=== PATIENT | female | born 1980 | race Asian ===

== ENCOUNTER 2021-09-13 22:29 | Observation (INO) | payer OTHER, SELFPAY ==
[2021-09-13 21:30] VITALS: BMI 29.2
[2021-09-13 21:50] VITALS: BP 131/85; PULSE 83
[2021-09-13 21:54] LABS: Basophils Percent Auto 0.2 % (0.2-1.2); Eosinophils Absolute Auto 0.2 K/mm3 (0-0.3); Eosinophils Percent Auto 1.6 % (0-4.4); Hematocrit 29.9 % (37.0-47.0); Hemoglobin 10.5 g/dL (12.0-15.0); Immature Granulocyte Absolute 0.05 K/mm3 (0.00-0.031); Immature Granulocyte Percent A 0.5 % (0-0.5); Lymphocytes Absolute Auto 1.78 K/mm3 (0.9-3.2); Lymphocytes Percent Auto 18.7 % (18.3-44.2); Mean Corpuscular HGB Conc 35.1 g/dl (32-36); Mean Corpuscular Volume 85.4 fl (80-100); Mean Platelet Volume 9.5 fl (7.4-10.4); Monocytes Absolute Auto 0.8 K/mm3 (0.1-0.6); Monocytes Percent Auto 7.9 % (2.6-8.5); Neutrophils Absolute Auto 6.8 K/mm3 (1.3-6.7); Neutrophils Percent Auto 71.1 % (45.5-73.1); Platelet Count Result 251 k/mm3 (150-375); White Blood Count 9.5 K/mm3 (4.5-10.0)
[2021-09-13 21:55] LABS: Appearance Urine Clear (Clear); Bilirubin Urine Negative (Negative); Blood Urine Negative (Negative); Glucose Urine UA Negative (Negative); Ketones Urine Negative (Negative); Leukocyte Esterase Ur Negative LEU/UL (NEGATIVE); Nitrate Urine Negative (Negative); Protein Urine Negative (Negative); Urobilinogen Urine 0.2 mg/dL (<2.0)
[2021-09-13 22:01] VITALS: BP 128/85; PULSE 85
[2021-09-13 22:03] LABS: Add Urine Microscopic? NO; Color Urine Light Yellow (Yellow)
[2021-09-13 22:07] LABS: Creatinine Urine 22.3 mg/dL; Total Protein Urine Random 26 mg/dL; Ur Ttl Prot Creatinine Ratio 1.17 mg/mg (0-0.20)
[2021-09-13 22:12] LABS: Alanine Aminotransferase 16 U/L (6-35); Albumin Level 3.5 g/dL (3.5-5.1); Alkaline Phosphatase 130 U/L (38-126); Anion Gap 6 mmol/L (8-16); Aspartate Amino Transferase 24 U/L (14-36); Bilirubin,Total 0.1 mg/dL (0.2-1.3); Blood Urea Nitrogen 13 mg/dL (7-17); Calcium 8.7 mg/dL (8.4-10.2); Carbon Dioxide 23 mmol/L (22-30); Chloride 106 mmol/L (98-107); Estimated Glomerular Filt Rate > 60; Glucose 115 mg/dL (65-110); Potassium 2.8 mmol/L (3.4-5.0); Sodium 135 mmol/L (137-145); Uric Acid 5.5 mg/dL (2.5-7.5)
[2021-09-13 22:16] VITALS: BP 136/90; PULSE 85
[2021-09-13 22:31] VITALS: BP 137/89; PULSE 81
[2021-09-13] MEDS: KCL 40 MEQ/0.9% SOD CHL 1,000 ML 150 ML IV CONT (23:00)
[2021-09-14 02:31] VITALS: BP 111/62; PULSE 97
--- NOTE | 2021-09-14 04:19 | OBADM ---
This patient, Becca Gant, admitted to the OB room [facility] for observation. Patient/family oriented to hospital policies and general routines including ID bracelet, bed and alarms, visiting hours, pain management, procedures, bathroom and other care routines, personal items, smoking policy, room service/diet, and visiting hours. Patient/Family are encouraged to report perceived risks to care and to ask questions if they do not understand what they are told or what they should do.
[2021-09-14 07:50] VITALS: BP 137/87; PULSE 82
[2021-09-14 08:00] VITALS: TEMP 36.2
[2021-09-14 08:10] LABS: Hematocrit 28.7 % (37.0-47.0); Hemoglobin 9.9 g/dL (12.0-15.0); Mean Corpuscular HGB Conc 34.5 g/dl (32-36); Mean Corpuscular Hemoglobin 29.9 pg (26-34); Mean Corpuscular Volume 86.7 fl (80-100); Mean Platelet Volume 9.4 fl (7.4-10.4); Platelet Count Result 223 k/mm3 (150-375); Red Blood Count 3.31 M/mm3 (4.2-5.4); Red Cell Distribution Width 12.1 % (11.5-14.5); White Blood Count 7.3 K/mm3 (4.5-10.0)
[2021-09-14 08:26] LABS: Alanine Aminotransferase 13 U/L (6-35); Alkaline Phosphatase 126 U/L (38-126); Anion Gap 5 mmol/L (8-16); Aspartate Amino Transferase 20 U/L (14-36); Bilirubin,Total 0.3 mg/dL (0.2-1.3); Blood Urea Nitrogen 7 mg/dL (7-17); Calcium 7.6 mg/dL (8.4-10.2); Carbon Dioxide 21 mmol/L (22-30); Chloride 110 mmol/L (98-107); Estimated CRCL calculation 90 ml/min; Estimated Glomerular Filt Rate > 60; Glucose 86 mg/dL (65-110); Potassium 3.1 mmol/L (3.4-5.0); Sodium 136 mmol/L (137-145)
--- NOTE | 2021-09-14 08:33 | PM.IMHP ---
H&P: HPI History of Present Illness Date/Time: 09/14/21 08:33 Chief Complaint: Becca is a 41yo here for elevated BPs at home, highest yesterday evening 170/100. She has cHTN and had severe PreE and was delivered at 29w last . She denies JASON/BV/EP. Good FM. On admission found to have very low potassium. Review of Systems Review of Systems: All systems reviewed & are unremarkable except as noted in HPI and below Meds Home Medications and Allergies Home Medications Medication Instructions Recorded Confirmed Type aspirin 81 mg tablet 81 mg PO DAILY 09/13/21 09/13/21 History ferrous sulfate 27 mg iron tablet 27 mg PO DAILY 09/13/21 09/13/21 History nifedipine 60 mg tablet,extended 60 mg PO DAILY 09/13/21 09/13/21 History release 24 hr vitamin-ferrous sulfate 1 tablet PO DAILY 09/13/21 09/13/21 History 27 mg iron-folic acid 0.8 mg tablet Allergies Allergy/AdvReac Type Severity Reaction Status Date / Time shellfish derived Allergy Rash Verified 09/13/21 23:23 Vital Signs Vital Signs - 24 hr 09/13/21 21:50 09/13/21 22:01 09/13/21 22:16 Pulse Rate 83 85 85 Blood Pressure 131/85 128/85 136/90 09/13/21 22:31 09/14/21 02:31 Pulse Rate 81 97 Blood Pressure 137/89 111/62 Exam Const: General: no acute distress Resp: Effort & Inspection: normal respiratory effort Auscultation: clear to auscultation bilaterally Cardio: Rate: regular rate Rhythm: regular rhythm GI: GI Palp: Yes Soft to palpation Extrem: General: normal to inspection H&P: Results Labs Labs: Short CBC 09/13/21 09/14/21 Range/Units 21:47 08:03 WBC 9.5 7.3 (4.5-10.0) K/mm3 Hgb 10.5 L 9.9 L (12.0-15.0) g/dL Hct 29.9 L 28.7 L (37.0-47.0) % Plt Count 251 223 (150-375) k/mm3 [facility] 09/13/21 09/14/21 21:47 08:03 Sodium 135 L 136 L Potassium 2.8 L* 3.1 L Chloride 106 110 H Carbon Dioxide 23 21 L BUN 13 7 D Creatinine 0.70 0.60 L Glucose 115 H 86 Calcium 8.7 7.6 L Liver Function 09/13/21 09/14/21 Range/Units 21:47 08:03 Total Bilirubin 0.1 L 0.3 (0.2-1.3) mg/dL AST 24 20 (14-36) U/L ALT 16 13 (6-35) U/L Alkaline Phosphatase 130 H 126 (38-126) U/L Albumin 3.5 3.0 L (3.5-5.1) g/dL Urine 09/13/21 Range/Units 21:47 Urine Color Light yellow (Yellow) Urine Appearance Clear (Clear) Urine pH 7.0 (5.0-9.0) Ur Specific [place] 1.010 (1.001-1.035) Urine Protein Negative (Negative) mg/dL Urine Glucose (UA) Negative (Negative) mg/dL Assessment and Plan Assessment and plan (1) Chronic hypertension affecting : Code(s): O10.919 - Unspecified pre-existing hypertension complicating , unspecified trimester Status: Acute (2) History of severe pre-eclampsia: Code(s): Z87.59 - Personal history of other complications of , childbirth and the puerperium Status: Acute (3) Hypokalemia: Code(s): E87.6 - Hypokalemia Status: Acute Additional Plan K+ replacement repeat PIH labs this am if K improved and PIH labs still wnl, may complete 24hr urine at home. No strenuous activity at home. FHT category 1 BPs normotensive on bedrest.
--- NOTE | 2021-09-14 08:45 | PC.NURSE ---
Dr Corrigan here to see patient, order to run IV fluids at 200ml/hr x1. Patient may be dc'd and finish 24 hour urine at home.
[2021-09-14] MEDS: KCL 40 MEQ/0.9% SOD CHL 1,000 ML 200 ML IV CONT (08:51)
[2021-09-14 10:01] VITALS: BP 136/85; PULSE 82
[2021-09-14 11:25] VITALS: BP 135/84; PULSE 78
[2021-09-14 11:26] VITALS: BP 136/85; PULSE 78
[2021-09-14 14:59] LABS: Anion Gap 3 mmol/L (8-16); Blood Urea Nitrogen 8 mg/dL (7-17); Calcium 7.6 mg/dL (8.4-10.2); Carbon Dioxide 21 mmol/L (22-30); Chloride 112 mmol/L (98-107); Estimated CRCL calculation 90 ml/min; Estimated Glomerular Filt Rate > 60; Glucose 117 mg/dL (65-110); Potassium 3.3 mmol/L (3.4-5.0); Sodium 136 mmol/L (137-145)
== END 2021-09-14 15:27 | disposition home or self-care (01) ==
LOC: ANHOBOP 22:29 → ANHOBPP 22:29
PROVIDERS: Admitting Provider Obstetrics & Gynecology; PCP Emergency Medicine; Visit Provider Obstetrics & Gynecology
DX: O10.919 Unspecified pre-existing hypertension complicating pregnancy, unspecified trimester (principal); E87.6 Hypokalemia; O09.529 Supervision of elderly multigravida, unspecified trimester; Z3A.00 Weeks of gestation of pregnancy not specified; Z87.59 Personal history of other complications of pregnancy, childbirth and the puerperium
CPT/HCPCS: 36415; 59025; 80048; 80053; 81003; 82570; 84156; 84550; 85025; 85027; 87086; 96365; 96366; 96376; G0378; G0379

== ENCOUNTER 2021-09-14 22:30 | Outpatient (NON) | payer OTHER, SELFPAY ==
[2021-09-14 23:31] LABS: Collection Time Urine 24 HOURS
[2021-09-14 23:45] LABS: Creatinine Urine 22.5 mg/dL; Total Protein Urine Random 20 mg/dL
[2021-09-15 00:08] LABS: Specific Gravity Ur 1.015; Total Protein Urine 24 Hr 1080 mg/24hr (28-141); Total Volume 24 Hour Urine 5400 ml
[2021-09-15 00:09] LABS: Creatinine Clearance Urine 148.2 ml/min (75-125); Patient Weight 149 Lbs
== END 2021-09-14 22:31 | disposition home or self-care (01) ==
LOC: ANHOBOP 23:12
PROVIDERS: Visit Provider Obstetrics & Gynecology
DX: Z34.90 Encounter for supervision of normal pregnancy, unspecified, unspecified trimester (principal); Z3A.00 Weeks of gestation of pregnancy not specified
CPT/HCPCS: 81050; 82575; 84156

== ENCOUNTER 2021-09-18 14:37 | Outpatient (RCR) | payer OTHER, SELFPAY ==
[2021-09-17] MEDS: BETAMETHASONE SOD PHOS/ACETATE 30 MG/5 ML VIAL 12 MG IM (13:44)
[2021-09-18] MEDS: BETAMETHASONE SOD PHOS/ACETATE 30 MG/5 ML VIAL 12 MG IM (14:48)
== END 2021-10-09 09:17 | disposition home or self-care (01) ==
LOC: ANHOBOP 14:37
PROVIDERS: Visit Provider Obstetrics & Gynecology
DX: O36.8990 Maternal care for other specified fetal problems, unspecified trimester, not applicable or unspecified (principal); Z3A.00 Weeks of gestation of pregnancy not specified
CPT/HCPCS: 96372; J0702

== ENCOUNTER 2021-09-18 17:23 | Inpatient (IN) | payer OTHER, SELFPAY ==
--- NOTE | 2021-09-14 13:00 | PC.NURSE ---
Verified with OR schedule and patient --C/S on 10/08/21 with tubal ligation at 0730 Patient given requisition for lab drawn on 10/06/21
[2021-09-18] VITALS (58 sets, daily range): BP systolic 114–168; BP diastolic 16–131; PULSE 68–217; RESP 14–21; TEMP 36.3–37; O2SAT 96–100; BMI 29.7
--- NOTE | 2021-09-18 17:23 | LDADM ---
This patient, Becca Gant, was admitted to Labor/Delivery/Recovery 118 on 09/18/21 at 17:23. Plans for labor, pain management and were discussed with patient. Patient/family oriented to hospital policies and general routines including ID bracelet, bed and alarms, visiting hours, pain management, procedures, bathroom and other care routines, personal items, smoking policy, room service/diet and guest tray routines, security routines, and visiting hours. Patient/Family are encouraged to report perceived risks to care and to ask questions if they do not understand what they are told or what they should do. See OBIX for further documentation.
--- OUTSIDE RECORDS SUMMARY | 2021-09-18 17:29 | XMS_ITS | Encounter Summary ---
:1980 Author Care Team Providers Name Role Phone Manolo Montanez Primary Care Provider [phone] Reason for Visit OB visit Assessment and Plan 1. Advanced maternal age 2. Deliveries by 3. History of severe pre-eclampsia 4. Hypertension complicating ? nifedipine ER 30 mg tablet,extended r elease 24 hr Discussion Note: None recorded.Patient educational handouts: No information available. Plan of Care Reminders Provider Appointments Nst 09/21/2021 2:30PM Nst, , EQUIP ? U/s Ob Growth 09/25/2021 4:30PM Ultrasound, TECH ? Ob Routine 09/25/2021 5:15PM Sydnie Corrigan MD ? Nst 09/25/2021 4:00PM Nst, , EQUIP ? Nst 09/28/2021 4:00PM Nst, , EQUIP ? Nst 10/05/2021 3:00PM Nst, , EQUIP ? U/s Ob Growth 10/05/2021 3:30PM Ultrasound T wo, TECH ? Ob Routine 10/05/2021 2:45PM Sydnie Corrigan MD ? SURG CSection 10/08/2021 7:30AM Sydnie Corrigan MD ? Nst 10/09/2021 4:00PM Nst, , EQUIP ? Nst 10/12/2021 3:30PM Nst, , EQUIP ? Ob Routine 10/12/2021 2:45PM Sydnie Corrigan MD ? 1Hr Glucose on or around Sydnie kellogg MD 01/11/2022 ? Nexplanon Removal on or around Sydnie Corrigan MD 02/29/2024 Lab None recorded. ? ? Referral None recorded. ? ? Procedures None recorded. ? ? Surgeries None recorded. ? ? Imaging None recorded. ? ? Medications Name Start Date ? ? nifedipine ER 30 mg tablet,extended release ? TAKE 1 TABLET BY MOUTH TWICE A DAY
--- OUTSIDE RECORDS SUMMARY | 2021-09-18 17:29 | XMS_ITS ---
:1980 Author Care Team Providers Name Role Phone GLENNA MÉNDEZ Primary Care Provider [phone] Allergies Code Code System Name Reaction Severity Status Onset Shellfish Derived ? ? Active ? Medications Name Status Start Date Stop Date ? ? amlodipine 5 mg tablet Completed ? TAKE 1 TABLET BY MOUTH ONCE DAILY amoxicillin 500 mg capsule Completed ? 08/22 chlorhexidine gluconate 0.12 % mouthwash Completed ? 08/22/2020 diflunisal 500 mg tablet Completed ? 021 fluticasone propionate 50 mcg/actuation nasal Completed ? 03/06/2021 spray,suspension labetalol 200 mg tablet Completed ? 08/23/19 levocetirizine 5 mg tablet Completed ? 03/06 losartan 100 mg tablet Completed ? losartan 50 mg tablet Completed ? 08/22/2020 Nexplanon 68 mg subdermal implant Completed ? 03/06/2021 Inject by subcutaneous route. nifedipine ER 30 mg tablet,extended release Active ? Not available TAKE 1 TABLET BY MOUTH TWICE A DAY nifedipine ER 30 mg tablet,extended release 24 hr Active ? Not available Take 1 tablet twice a day by oral route. nifedipine ER 60 mg tablet,extended release Completed ? 07/20/2021 nifedipine ER 60 mg tablet,extended release 24 hr Completed ? 10/25/2020 TAKE 1 TABLET BY MOUTH ONCE DAILY potassium chloride ER 20 mEq tablet,extended release Active ? Not available Active ? Not available sulfamethoxazole 800 mg-trimethoprim 160 mg tablet Completed ? 08/22/2020 TAKE 1 TABLET BY MOUTH TWICE DAILY FOR 7 DAYS Problems Name Status Onset Date Source ? Deliveries
--- OUTSIDE RECORDS SUMMARY | 2021-09-18 17:29 | XMS_ITS | Encounter Summary ---
:1980 Author Care Team Providers Name Role Phone Manolo Montanez Primary Care Provider [phone] Reason for Visit OB visit Assessment and Plan Assessment Note Patient is ___weeks . Discussed plan. 1. Routine care Discussion Note: None recorded.Patient educational handouts: No [...] ER 30 mg tablet,extended release 24 hr ? Take 1 tablet twice a day by oral route. potassium chlorid
--- OUTSIDE RECORDS SUMMARY | 2021-09-18 17:29 | XMS_ITS | Encounter Summary ---
:1980 Author Care Team Providers Name Role Phone Manolo Montanez Primary Care Provider [phone] Reason for Visit OB visit Assessment and Plan 1. Advanced maternal age 2. Deliveries by 3. History of severe pre-eclampsia Discussion Note: None recorded.Patient educational handouts: No [...] twice a day by oral route. potassium chloride ER 20 mEq t
--- OUTSIDE RECORDS SUMMARY | 2021-09-18 17:29 | XMS_ITS | Encounter Summary ---
:1980 Author Care Team Providers Name Role Phone Manolo Montanez Primary Care Provider [phone] Reason for Visit None recorded. Assessment and Plan 1. Gestational diabetes mellitus, class A>1< ? non-stress test Discussion Note: None recorded.Patient educational handouts: No [...] ? Surgeries None recorded. ? ? Imaging Non-stress Test 08/30/2021 [facility] Medications Name Start Date ? ? nifedipine ER 30 mg tablet,extended release ? TAKE 1 TABLET BY MOUTH TWICE A DAY nifedipine ER 30 mg tablet,extended release 24 hr ? Take 1 tablet twice a day by oral route. potassium chloride ER 20 mEq tablet,extended release ? CARRI[facility]
--- OUTSIDE RECORDS SUMMARY | 2021-09-18 17:29 | XMS_ITS | Encounter Summary ---
:1980 Author Care Team Providers Name Role Phone Manolo Montanez Primary Care Provider [phone] Reason for Visit None recorded. Assessment and Plan 1. Chronic hypertension complicating AN D/OR reason for care during ? US, obstetric, follow-up Discussion Note: None recorded.Patient educational handouts: No [...] ? Surgeries None recorded. ? ? Imaging US, Obstetric, 08/30/2021 [facility] Follow-up Medications Name Start Date ? ? nifedipine ER 30 mg tablet,extended release ? TAKE 1 TABLET BY MOUTH TWICE A DAY nifedipine ER 30 mg tablet,extended release 24 hr ? Take 1 tablet twice a day by oral route.
--- OUTSIDE RECORDS SUMMARY | 2021-09-18 17:29 | XMS_ITS | Encounter Summary ---
:1980 Author Care Team Providers Name Role Phone Manolo Montanez Primary Care Provider [phone] Reason for Visit None recorded. Assessment and Plan 1. History of severe pre-eclampsia ? non-stress test Discussion Note: None recorded.Patient [...] None recorded. ? ? Imaging Non-stress Test 09/04/2021 [facility] Medications Name Start Date ? ? nifedipine ER 30 mg tablet,extended release ? TAKE 1 TABLET BY MOUTH TWICE A DAY nifedipine ER 30 mg tablet,extended release 24 hr ? Take 1 tablet twice a day by oral route. potassium chloride ER 20 mEq tablet,extended release ? TAKE 1 TABLET BY
--- OUTSIDE RECORDS SUMMARY | 2021-09-18 17:29 | XMS_ITS | Encounter Summary ---
:1980 Author Care Team Providers Name Role Phone Manolo Montanez Primary Care Provider [phone] Reason for Visit OB visit Assessment and Plan 1. Hypokalemia ? BMP, blood 2. Advanced maternal age 3. Deliveries by 4. History of severe pre-eclampsia 5. Hypertension complicating Discussion Note: None recorded.Patient educational handouts: No [...] or around Sydnie Corrigan MD 02/29/2024 Lab BMP, Blood 08/03/2021 [facility] (Lab) Referral None recorded. ? ? Procedures None recorded. ? ? Surgeries None recorded. ? ? Imaging None recorded. ? ? Medications Name Start Date ? ? nifedipine ER 30 mg tablet,
--- OUTSIDE RECORDS SUMMARY | 2021-09-18 17:29 | XMS_ITS | Encounter Summary ---
:1980 Author Care Team Providers Name Role Phone Manolo Montanez Primary Care Provider [phone] Reason for Visit OB visit Assessment and Plan Assessment Note Patient is ___weeks . Discussed plan. 1. Advanced maternal age 2. Deliveries by ? section (SURG) 3. History of severe pre-eclampsia 4. Sterilization requested ? salpingectomy (SURG) 5. Gestational diabetes mellitus, class A>1< Pt here for diet teaching. Went over id eal ranges for FBS and pp BS. Went over carb counting and carb ranges for each meal/s nack. Gave ideas for foods to eat for meals/snacks. Discussed drink options an d to avoid soda and juice. Pt picked up glucometer and forgot to check a fasting sugar this morning, but after breakfast was 155. Pt had oatmeal with a small amount of sugar. Discussed ways to modify breakfast for lower carb content. Pt states she re ally is hungry by lunch because she doesn't eat much for breakfast and doesn't snack . Told pt to make sure to eat 6 small meals a day and try to add more protein into bebe ls to keep her full longer. Pt states she eats a lot of rice and bread. Told pt ab out low carb bread options and to make sure to look at serving sizes for rice to samira e sure to stay within carb range. Told pt to continue checking BS QID and adjusting d iet to follow low carb diet to try to keep BS within normal range. Pt aware if sugars aren't controlled by diet we would discuss starting insulin. Went over NST schedule with pt and importance of keeping these appts and checking BS for her and baby's health. Pts questions were answered and pt verbalized understanding. JOSHUA cerna Discussion Note: None recorded.Patient educati
--- OUTSIDE RECORDS SUMMARY | 2021-09-18 17:29 | XMS_ITS | Encounter Summary ---
:1980 Author Care Team Providers Name Role Phone Manolo Montanez Primary Care Provider [phone] Reason for Visit OB visit Assessment and Plan 1. History of severe pre-eclampsia ? CMP, serum or plasma ? CBC w/ auto diff ? uric acid, serum or plasma ? protein:creatinine ratio, urine 2. Hypertension complicating 3. Advanced maternal age Discussion Note: None recorded.Patient educational handouts: No [...] or around Sydnie Corrigan MD 02/29/2024 Lab CMP, Serum or Plasma 09/11/2021 [facility] (Lab) ? CBC W/ Auto Diff 09/11/2021 [facility] (Lab) ? Uric Acid, Serum or 09/11/2021 [facility] [place] Plasma (Lab)
--- OUTSIDE RECORDS SUMMARY | 2021-09-18 17:29 | XMS_ITS | Encounter Summary ---
:1980 Author Care Team Providers Name Role Phone Manolo Montanez Primary Care Provider [phone] Reason for Visit None recorded. Assessment and Plan 1. Gestational diabetes mellitus, class A>1< Pt here [...] understanding. JOSHUA cerna Discussion Note: None recorded.Patient educational handouts: No information available. Plan of Care Reminders Provider Appointments Nst 09/21/2021 2:30PM Nst, , EQUIP ? U/s Ob Growth 09/25/2021 4:30PM Ultrasound, TECH ? Ob Routine 09/25/2021 5:15PM Sydnie Corrigan MD ? Nst 09/25/2021 4:00PM Nst, , EQUIP ? Nst 09/28/2021 4:00PM Nst, , EQUIP
--- OUTSIDE RECORDS SUMMARY | 2021-09-18 17:29 | XMS_ITS | Encounter Summary ---
:1980 Author Care Team Providers Name Role Phone Manolo Montanez Primary Care Provider [phone] Reason for Visit NST [id number] EDC 10/19/2021 Assessment and Plan 1. Gestational diabetes mellitus, [...] None recorded. ? ? Imaging Non-stress Test 09/11/2021 [facility] Medications Name Start Date ? ? nifedipine ER 30 mg tablet,extended release ? TAKE 1 TABLET BY MOUTH TWICE A DAY nifedipine ER 30 mg tablet,extended release 24 hr ? Take 1 tablet twice a day by oral route. potassium chloride ER 20 mEq tablet,extended release ?
--- OUTSIDE RECORDS SUMMARY | 2021-09-18 17:30 | XMS_ITS | Encounter Summary ---
:1980 Author Care Team Providers Name Role Phone Manolo Montanez Primary Care Provider [phone] Reason for Visit None recorded. Assessment and Plan 1. screening ? US, obstetric, 2nd or 3rd trimester ? US, obstetric, transvaginal Discussion Note: None recorded.Patient educational handouts: No [...] None recorded. ? ? Imaging US, Obstetric, 2Nd or 3Rd 06/19/2021 Devi juliet Trimester ? US, Obstetric, 06/19/2021 [facility]
[2021-09-18 18:04] LABS: Basophils Percent Auto 0.2 % (0.2-1.2); Eosinophils Percent Auto 0.1 % (0-4.4); Hematocrit 29.8 % (37.0-47.0); Hemoglobin 10.5 g/dL (12.0-15.0); Immature Granulocyte Percent A 1.7 % (0-0.5); Lymphocytes Absolute Auto 1.27 K/mm3 (0.9-3.2); Lymphocytes Percent Auto 10.9 % (18.3-44.2); Mean Corpuscular HGB Conc 35.2 g/dl (32-36); Mean Corpuscular Volume 85.1 fl (80-100); Mean Platelet Volume 9.5 fl (7.4-10.4); Monocytes Absolute Auto 0.4 K/mm3 (0.1-0.6); Monocytes Percent Auto 3.3 % (2.6-8.5); Neutrophils Absolute Auto 9.8 K/mm3 (1.3-6.7); Neutrophils Percent Auto 83.8 % (45.5-73.1); Platelet Count Result 272 k/mm3 (150-375); Red Cell Distribution Width 12.3 % (11.5-14.5); White Blood Count 11.7 K/mm3 (4.5-10.0)
[2021-09-18 18:16] LABS: Alanine Aminotransferase 18 U/L (6-35); Albumin Level 3.7 g/dL (3.5-5.1); Alkaline Phosphatase 166 U/L (38-126); Anion Gap 6 mmol/L (8-16); Aspartate Amino Transferase 23 U/L (14-36); Bilirubin,Total 0.2 mg/dL (0.2-1.3); Blood Urea Nitrogen 12 mg/dL (7-17); Calcium 8.2 mg/dL (8.4-10.2); Carbon Dioxide 20 mmol/L (22-30); Chloride 109 mmol/L (98-107); Estimated Glomerular Filt Rate > 60; Glucose 118 mg/dL (65-110); Potassium 3.4 mmol/L (3.4-5.0); Sodium 135 mmol/L (137-145); Uric Acid 5.8 mg/dL (2.5-7.5)
--- NOTE | 2021-09-18 18:20 | PC.NURSE ---
Updated Dr. Corrigan on patient lab results.
--- NOTE | 2021-09-18 18:28 | PC.NURSE ---
Updated Dr. Corrigan on patient previous lab results.
[2021-09-18] MEDS: LACTATED RINGERS 1,000 ML 125 ML IV CONT (20:01)
--- NOTE | 2021-09-18 20:14 | WPDANESEPP ---
Anes - Eval Pre Procedure Procedure: Operation Date: 09/18/21 20:30 Proposed Procedures p Repeat Section, Bilateral Salpingectomy - Sydnie Corrigan MD Date/Time: 09/18/21 20:14 Surgeon: christine Pre Op Diagnosis: elevated pressures/poss c/s Patient Data Age: 41 Gender: F Height: 1.52 m Weight: 69 kg Last Vital Signs Temp 37.0 C 09/18/21 19:00 Pulse 87 09/18/21 20:00 Resp 17 09/18/21 19:00 BP 140/109 H 09/18/21 20:00 O2 Del Method Room Air 09/18/21 20:07 Allergies Allergy/AdvReac Type Severity Reaction Status Date / Time latex Allergy Rash Verified 09/14/21 14:16 shellfish derived Allergy Rash Verified 09/14/21 14:16 Home Medications Medication Instructions Recorded Confirmed Type aspirin 81 mg tablet 81 mg PO DAILY 09/13/21 09/13/21 History ferrous sulfate 27 mg iron tablet 27 mg PO DAILY 09/13/21 09/13/21 History nifedipine 60 mg tablet,extended 60 mg PO DAILY 09/13/21 09/13/21 History release 24 hr vitamin-ferrous sulfate 1 tablet PO DAILY 09/13/21 09/13/21 History 27 mg iron-folic acid 0.8 mg tablet aspirin 81 mg tablet,delayed 162 mg PO DAILY 09/14/21 09/14/21 History release (Adult Low Dose Aspirin) ferrous sulfate 250 mg (50 mg 250 mg PO DAILY 09/14/21 09/14/21 History iron) tablet,extended release nifedipine 60 mg tablet,extended 60 mg PO DAILY 09/14/21 09/14/21 History release 24 hr (Procardia XL) prenat.vits,nohelia,[id number]-ayfc-jsrtl 1 tablet PO DAILY 09/14/21 09/14/21 History Laboratory Tests 09/18/21 09/18/21 09/18/21 17:58 17:58 20:04 WBC 11.7 K/mm3 H K/mm3 (4.5-10.0) RBC 3.50 M/mm3 L M/mm3 (4.2-5.4) Hgb 10.5 g/dL L g/dL (12.0-15.0) Hct 29.8 % L % (37.0-47.0) MCV 85.1 fl fl (80-100) MCH 30.0 pg pg (26-34) MCHC 35.2 g/dl g/dl (32-36) RDW 12.3 % % (11.5-14.5) Plt Count 272 k/mm3 k/mm3 (150-375) MPV 9.5 fl fl (7.4-10.4) Immature Gran % (Auto) 1.7 % H % (0-0.5) Neut % (Auto) 83.8 % H % (45.5-73.1) Lymph % (Auto) 10.9 % L % (18.3-44.2) [place] % (Auto) 3.3 % % (2.6-8.5) Eos % (Auto) 0.1 % % (0-4.4) Baso % (Auto) 0.2 % % (0.2-1.2) Lymph # (Auto) 1.27 K/mm3 K/mm3 (0.9-3.2) [place] # (Auto) 0.4 K/mm3 K/mm3 (0.1-0.6) Eos # (Auto) 0.0 K/mm3 K/mm3 (0-0.3) Baso # (Auto) 0.0 K/mm3 K/mm3 (0.0-0.1) Abs Immat Gran (auto) 0.20 K/mm3 H K/mm3 (0.00-0.031) Absolute Neuts (auto) 9.8 K/mm3 H K/mm3 (1.3-6.7) Absolute Nucleated RBC 0.0 K/mm3 K/mm3 (0.0-0.012) Nucleated RBC % 0.0 % % (0.0-0.2) Sodium 135 mmol/L L mmol/L (137-145) Potassium 3.4 mmol/L mmol/L (3.4-5.0) Chloride 109 mmol/L H mmol/L (98-107) Carbon Dioxide 20 mmol/L L mmol/L (22-30) Anion Gap 6 mmol/L L mmol/L (8-16) BUN 12 mg/dL mg/dL (7-17) Creatinine 0.70 mg/dL mg/dL (0.7-1.0) Estim Creat Clear Calc Not Reportable Estimated GFR > 60 (59 - ) Glucose 118 mg/dL H mg/dL (65-110) Uric Acid 5.8 mg/dL mg/dL (2.5-7.5) Calcium 8.2 mg/dL L mg/dL (8.4-10.2) Total Bilirubin 0.2 mg/dL mg/dL (0.2-1.3) AST 23 U/L U/L (14-36) ALT 18 U/L U/L (6-35) Alkaline Phosphatase 166 U/L H U/L (38-126) Total Protein 8.0 g/dL g/dL (6.3-8.2) Albumin 3.7 g/dL g/dL (3.5-5.1) RPR Pending Patient hx anesthesia problems: none Family hx anesthesia problems: none Results Review: All pre-operative results and documents have been reviewed as part of the pre-operative evaluation. [facility] Family History Family History Mother Diabetes mellitus Breast cancer in female Hyperte
--- NOTE | 2021-09-18 20:39 | PM.IMHP ---
H&P: HPI History of Present Illness Date/Time: 09/18/21 20:39 Chief Complaint: 41yo at 35.4 with severe PreE. Had severe PreE and delivered last at 29w. cHTN this on 60mg nifedipine xl. Last week BPs at home on meds have been increasing, 150s-170s/95-110. uric acid baseline 4.6, up to 6.2 in office, creatinine baseline 0.6 up to 0.93 in office. Also has had intermittent scotomata and RUQ pain in the last week. No JASON. All monitoring has been normal. Prior CS x2 and plans salpingectomy for sterilization. Review of Systems Review of Systems: All systems reviewed & are unremarkable except as noted in HPI and below PMFSH Family History Family History Mother Diabetes mellitus Breast cancer in female Hypertension Father Kidney failure Heart disease Hypertension Diabetes mellitus Sibling Hypertension High cholesterol Social History Social History Smoking status: Former smoker Substance use: never Spiritual care concerns: No Meds Home Medications and Allergies Home Medications Medication Instructions Recorded Confirmed Type aspirin 81 mg tablet 81 mg PO DAILY 09/13/21 09/13/21 History ferrous sulfate 27 mg iron tablet 27 mg PO DAILY 09/13/21 09/13/21 History nifedipine 60 mg tablet,extended 60 mg PO DAILY 09/13/21 09/13/21 History release 24 hr vitamin-ferrous sulfate 1 tablet PO DAILY 09/13/21 09/13/21 History 27 mg iron-folic acid 0.8 mg tablet aspirin 81 mg tablet,delayed 162 mg PO DAILY 09/14/21 09/14/21 History release (Adult Low Dose Aspirin) ferrous sulfate 250 mg (50 mg 250 mg PO DAILY 09/14/21 09/14/21 History iron) tablet,extended release nifedipine 60 mg tablet,extended 60 mg PO DAILY 09/14/21 09/14/21 History release 24 hr (Procardia XL) prenat.vits,nohelia,smo-tiaw-gzwck 1 tablet PO DAILY 09/14/21 09/14/21 History Allergies Allergy/AdvReac Type Severity Reaction Status Date / Time latex Allergy Rash Verified 09/14/21 14:16 shellfish derived Allergy Rash Verified 09/14/21 14:16 Vital Signs Vital Signs - 24 hr 09/18/21 18:00 09/18/21 18:01 09/18/21 18:15 Temperature Pulse Rate 91 90 94 Respiratory Rate Blood Pressure 141/90 H 145/94 H 142/99 H Oxygen Delivery 09/18/21 18:18 09/18/21 19:00 09/18/21 20:00 Temperature 98.6 F Pulse Rate 87 93 87 Respiratory Rate 17 Blood Pressure 142/95 H 148/95 H 140/109 H Oxygen Delivery 09/18/21 20:07 Temperature Pulse Rate Respiratory Rate Blood Pressure Oxygen Delivery Room Air Exam Const: General: no acute distress Resp: Effort & Inspection: normal respiratory effort Auscultation: clear to auscultation bilaterally Cardio: Rate: regular rate Rhythm: regular rhythm GI: GI Palp: Yes Soft to palpation Extrem: General: normal to inspection H&P: Results Labs Labs: Short CBC 09/18/21 Range/Units 17:58 WBC 11.7 H (4.5-10.0) K/mm3 Hgb 10.5 L (12.0-15.0) g/dL Hct 29.8 L (37.0-47.0) % Plt Count 272 (150-375) k/mm3 BMP 09/18/21 17:58 Sodium 135 L Potassium 3.4 Chloride 109 H Carbon Dioxide 20 L BUN 12 Creatinine 0.70 Glucose 118 H Calcium 8.2 L Liver Function 09/18/21 Range/Units 17:58 Total Bilirubin 0.2 (0.2-1.3) mg/dL AST 23 (14-36) U/L ALT 18 (6-35) U/L Alkaline Phosphatase 166 H (38-126) U/L Albumin 3.7 (3.5-5.1) g/dL Assessment and Plan Assessment and plan (1) Severe preeclampsia: Code(s): O14.10 - Severe pre-eclampsia, unspecified trimester Status: Acute Additional Plan has had [place] x2 Plan Repeat CS for severe PreE superimposed on cHTN. severe based on sx and labs trending abnormal. also with severe pressures even on BPmeds. Discussed RBA, pt consented, all questions answered. salpingectomy at time of CS. magnesium fo
--- NOTE | 2021-09-18 20:45 | WPDHPUPDATE1 ---
History and Physical Update Update Date/Time: 09/18/21 20:45 History and Physical has been reviewed, including an updated exam of the patient. There are NO changes in the patient's condition. Risks, benefits, and alternatives have been discussed and questions answered. Patient agrees to proceed with procedure.
[2021-09-18] MEDS: ceFAZolin 2 GM/D5W 50 ML 2 GM/50 ML BAG IVPB (20:46)
--- NOTE | 2021-09-18 22:14 | P.PCNOB_ITS ---
OB - Delivery Note Procedure Delivery date: 09/18/21 Procedure: Procedures Operation Date: 09/18/21 20:30 <No data on this case meets the specified criteria> repeat low transverse section and bilateral salpingectomy Events: Chronic Hypertension, Preeclampsia w severe features and Previous Delivery Route of delivery: Specimen: Yes (placenta) Quantitative Blood Loss (ml): 695 Anesthesia type: Spinal Disposition: Floor Complications: none Narrative: The patient was taken to the OR and received spinal anesthesia. She was placed in dorsal supine position with left lateral tilt. SCDs and daniels were placed. She was prepped and draped in the normal sterile fashion. A Pfannensteil skin incision was made and carried through to the underlying layer of fascia. The fascia was incised in the midline and then extended laterally using Hale scissors. The muscles were in the midline and the peritoneum was entered bluntly. The peritoneal incision was extended infe riorly and superiorly with care to avoid the bladder. The bladder blade was then inserted, the vesicouterine peritoneum was grasped, incised with Metzenbaum scissors, and a bladder flap created. The bladder blade was reinserted. A low transverse uterine incision was made with a scalpel and extended bluntly. AROM was performed and fluid was noted to be clear. The head was delivered, followed by the remainder of the baby. The baby's oropharynx was suctioned. After 30 seconds, the cord was clamped and cut and the was handed off. Cord blood was obtained and the placenta was then removed manually. The uterus was exteriorized. A moist lap sponge was used to curette the endometrium. The uterine incision was then closed with one layer of 0-Vicryl in a running, locking fashion. An arterial bleeder at the left side of the hysterotomy was made hemostatic with several [id number] sutures. Good hemostasis was noted. I then turned attention to the tubes. Using the Ligasur e, the right tube was removed by sequentially clamping, cauterizing, and cutting the tube free from the cornua and the broad ligament. Similarly, the left tube was removed. The posterior cul de sac was irrigated with normal saline and cleared of all clot and debris. The uterus was returned to the abdomen. Both lateral gutters were then irrigated. The rectus muscles were inspected and required 2 sutures to obtain hemostasis. The fascia was reapproximated using 0- Vicryl in running fashion. The subcutaneous tissue was irrigated with normal saline and made hemostatic with Bovie electrocautery. The skin was then closed with 4-0 monocryl. Steri strips and a bandage were applied. The uterus was evacuated. The patient tolerated the procedure very well. All counts were correct. She w as taken to the recovery room in good condition. [place] Baby Date of : 09/18/21 Time of : 21:12 Weeks of gestation at delivery: 35 Infant gender: Female Weight (pounds): 5 Weight (ounces): 10 presentation: vertex Placenta delivery description: Manual Removal Cord Vessel Description: 3 Vessels and Delayed Cord Clamping score one minute: 8 score five minutes: 9
[2021-09-18] MEDS: OXYTOCIN 30 UNITS/NS 500 ML 30 UNITS/500 ML BAG 125 UNITS IV CONT (22:26)
--- NOTE | 2021-09-18 22:56 | PC.NURSE ---
Updated Dr. Corrigan of patient assessment. 168cc of clots expressed during fundal massage. Fundus was firm and midline following with moderate lochia. Order to continue with magnesium bolus as ordered.
[2021-09-18] MEDS: MAGNESIUM SULF 4 GM/WATER100ML 4 GM/100 ML BAG IVPB (23:02)
--- NOTE | 2021-09-18 23:22 | PC.NURSE ---
Addendum entered by Pranay Landry RN 09/18/21 23:24: 1000mcg of cytotec rectal NOW was ordered. Original Note: Updated Dr. Corrigan of [facility] of clots expressed during fundal massage. Fundus returned to firm and midline following fundal massage with clot expression. VSS. Order to stop magnesium bolus and administer 1000mg of cytotec retal NOW.
[2021-09-18] MEDS: miSOPROStol 200 MCG TABLET 1000 MCG (23:29)
[2021-09-18] MEDS: MORPHINE SULFATE INJ (*CRX) 10 MG/ML AMP 3 MG IV PUSH (23:33)
[2021-09-19] VITALS (28 sets, daily range): BP systolic 140–162; BP diastolic 88–104; PULSE 68–87; RESP 15–18; TEMP 36–37.8; O2SAT 99–100
--- NOTE | 2021-09-19 00:40 | ADMGEN ---
This patient, Becca Gant, was admitted to OB 2nd Floor Room 287-00. Patient/family oriented to hospital policies and general routines including ID bracelet, bed and alarms, visiting hours, pain management, procedures, bathroom and other care routines, personal items, smoking policy, room service/diet, and visiting hours. Information on how to activate the Rapid Response Team has been discussed. Patient/Family are encouraged to report perceived risks to care and to ask questions if they do not understand what they are told or what they should do.
[2021-09-19] MEDS: ONDANSETRON INJ 4 MG/2 ML VIAL IV PUSH (01:06)
[2021-09-19] MEDS: MAGNESIUM SULF 20GM/WATER500ML 500 ML 50 MG IV CONT ×2 (01:11→17:27)
[2021-09-19] MEDS: LANOLIN (LANSINOH) 7.5 GM CREAM 1 APPLIC TOPICAL (01:20)
[2021-09-19] MEDS: KETOROLAC 30 MG/ML VIAL (*BKC) IV PUSH (04:55)
[2021-09-19] MEDS: HYDROcodone/acetaminophen (*CRX) 5-325 MG TABLET 1 TAB PO ×3 (04:57→19:57)
[2021-09-19 05:04] LABS: Basophils Absolute Auto 0.1 K/mm3 (0.0-0.1); Basophils Percent Auto 0.2 % (0.2-1.2); Hematocrit 26.8 % (37.0-47.0); Hemoglobin 8.4 g/dL (12.0-15.0); Immature Granulocyte Absolute 0.19 K/mm3 (0.00-0.031); Immature Granulocyte Percent A 0.8 % (0-0.5); Lymphocytes Absolute Auto 1.74 K/mm3 (0.9-3.2); Lymphocytes Percent Auto 7.6 % (18.3-44.2); Mean Corpuscular HGB Conc 31.3 g/dl (32-36); Mean Corpuscular Hemoglobin 29.7 pg (26-34); Mean Corpuscular Volume 94.7 fl (80-100); Monocytes Absolute Auto 1.2 K/mm3 (0.1-0.6); Monocytes Percent Auto 5.1 % (2.6-8.5); Neutrophils Absolute Auto 19.9 K/mm3 (1.3-6.7); Neutrophils Percent Auto 86.3 % (45.5-73.1); Platelet Count Result 169 k/mm3 (150-375); Red Blood Count 2.83 M/mm3 (4.2-5.4); Red Cell Distribution Width 12.6 % (11.5-14.5)
--- NOTE | 2021-09-19 07:30 | WPDANLDPN2 ---
Anes-Prog Note L&D Date/Time: 09/19/21 07:30 Comfortable throughout: section Neuraxial method: spinal Epidural/Spinal procedure site: clean & non-tender Neuro status: Neuro function grossly intact. Cardiovascular status: normal Respiratory status: normal Airway patency: baseline Mental status: baseline Post-Op hydration status: normal Vital Signs: Last Vital Signs Temp 37.2 C 09/19/21 01:25 Pulse 75 09/19/21 01:25 Resp 18 09/19/21 01:25 BP 149/93 H 09/19/21 01:25 Pulse Ox 99 09/19/21 00:14 O2 Del Method Room Air 09/19/21 00:40 Pain score (VAS): 04/09 I/O: Intake & Output 09/18/21 09/18/21 09/19/21 15:59 23:59 07:59 Intake Total 150 600 Output Total 1536 323 Balance -1386 277 Post-procedural complaints: none Patient feedback: Patient satisfied with anesthetic care.
[2021-09-19] MEDS: MULTIVIT/MIN/PREN/FOL AC/IRON TABLET 1 TAB PO (07:39)
[2021-09-19] MEDS: DOCUSATE SODIUM 100 MG CAPSULE PO (07:39)
[2021-09-19] MEDS: POLYSACCHARIDE IRON COMPLEX 150 MG CAPSULE PO (07:39)
[2021-09-19] MEDS: SIMETHICONE 80 MG TAB.CHEW PO (07:40)
--- NOTE | 2021-09-19 08:16 | PM.OBPNVD ---
OB - PN: Subj Subjective Date/time seen: 09/19/21 08:16 Patient comments: no complaints and pain well controlled baby status: doing well [place] feeding status: breast and bottle feeding Narrative: POD 1 from primary CS. Doing well. Normal lochia. Eating, ambulating, daniels out. UOP 570cc in 8 hours. mag on, feels woozy. BPs 140s/90s since delivery. OB - PN: Obj Data Labs CBC & Chem 7: 09/19/21 04:51 09/18/21 17:58 Labs: Laboratory Results - last 24 hr 09/18/21 09/18/21 09/18/21 17:58 17:58 20:04 WBC 11.7 H RBC 3.50 L Hgb 10.5 L Hct 29.8 L MCV 85.1 MCH 30.0 MCHC 35.2 RDW 12.3 Plt Count 272 MPV 9.5 Immature Gran % (Auto) 1.7 H Neut % (Auto) 83.8 H Lymph % (Auto) 10.9 L [place] % (Auto) 3.3 Eos % (Auto) 0.1 Baso % (Auto) 0.2 Lymph # (Auto) 1.27 [place] # (Auto) 0.4 Eos # (Auto) 0.0 Baso # (Auto) 0.0 Abs Immat Gran (auto) 0.20 H Absolute Neuts (auto) 9.8 H Absolute Nucleated RBC 0.0 Nucleated RBC % 0.0 Sodium 135 L Potassium 3.4 Chloride 109 H Carbon Dioxide 20 L Anion Gap 6 L BUN 12 Creatinine 0.70 Estim Creat Clear Calc Not Reportable Estimated GFR > 60 Glucose 118 H Uric Acid 5.8 Calcium 8.2 L Total Bilirubin 0.2 AST 23 ALT 18 Alkaline Phosphatase 166 H Total Protein 8.0 Albumin 3.7 Blood Type A Positive Antibody Screen Negative 09/19/21 04:51 WBC 23.0 H RBC 2.83 L Hgb 8.4 L Hct 26.8 L MCV 94.7 D MCH 29.7 MCHC 31.3 L RDW 12.6 Plt Count 169 MPV 10.0 Immature Gran % (Auto) 0.8 H Neut % (Auto) 86.3 H Lymph % (Auto) 7.6 L [place] % (Auto) 5.1 Eos % (Auto) 0.0 Baso % (Auto) 0.2 Lymph # (Auto) 1.74 [place] # (Auto) 1.2 H Eos # (Auto) 0.0 Baso # (Auto) 0.1 Abs Immat Gran (auto) 0.19 H Absolute Neuts (auto) 19.9 H Absolute Nucleated RBC 0.0 Nucleated RBC % 0.0 Sodium Potassium Chloride Carbon Dioxide Anion Gap BUN Creatinine Estim Creat Clear Calc Estimated GFR Glucose Uric Acid Calcium Total Bilirubin AST ALT Alkaline Phosphatase Total Protein Albumin Blood Type Antibody Screen OB - PN A/P Plan day: 1 Plan: routine care Comments: venofer for anemia repeat CBC at noon, low threshhold for 1 unit of blood given significant drop mag until 2100 BPs stable, continue procardia baby doing great in regular nursery Time Spent With Patient Time: Total time spent is greater than 50% in coordination of care (as documented) at patient's floor/unit and/or counseling patient: Exam Narrative: NAD abdomen soft, appropriately tender, incision bandaged Extremities nontender with 1+ edema
--- NOTE | 2021-09-19 08:23 | PC.NURSE ---
0805 - Report received from primary to RN that infant hasn't fed recently and needs a blood sugar. Blood sugar results at 71 mg/dl reported to primary RN.
[2021-09-19] MEDS: NIFEdipine 30 MG TAB.ER.24 PO ×2 (09:23→16:50)
--- NOTE | 2021-09-19 10:22 | PC.NURSE ---
[id number] Introductions were made, then consulted with patient to assess needs related to . Mother led the conversation with her experience feeding her so far. Mother works well with her and has skin to skin. Mother states she has been tired and recovering. Encouraged understanding of the benefits of skin to skin (unwrapping and placing vertically on her chest), responsive feeding and how to watch for early feeding signs, frequency of feeding on demand about every 8-12 times in 24 hours (every 2-3 hours), milk production, duration of feeding, signs of adequate intake/output and how to record on the feeding sheet. Demonstrated stimulating for waking to breastfeed with position changed, touch, talk and massage. Reviewed positioning bringing up to nipple level with ear, shoulder, hip alignment, supporting the breast, asymmetrical latch (off-center), and leading with the chin with a big open side gape. attempted to latch optimally to the right breast in football position. Education given to mother of how to visualize suck/swallow ratios and drinking at the breast. Infant was unable to optimally latch. is small and mother has a large nipple approximately 19-21mm big. Mother hand expresses copious colostrum into 's mouth as infant suckles on the nipple with no discomfort to mother. Infant is attempting as best as she can. Reviewed risk and benefits of using a nipple shield as a tool to teach infant to open with a wide gape to accommodate mother's nipple and pumping for milk supply protection. Nipple care reviewed with optimal latch and good positioning. Mother visualizes that infant is not latching effectively to the breast. is drinking colostrum expressed into her mouth and has burped between attempts. Resources used to facilitate learning were used with the visual handout/mom and baby guide. Mother voiced understanding of responsive feedings, stimulating with skin to skin, hand expressed colostrum, massage for stimulation, talking to to encourage if it has been 2 -3 hours since the start of the last , to call if does not latch or there is discomfort with . Reported to the primary RN. [id number] Breast pump provided due to ineffective feedings. Instructions given on cleaning, care, usage, that there should be no pain, pumping schedule for milk production, collection, and storage of human milk. Parents are encouraged to record pumping schedule on the feeding sheet. Patient was assessed for correct placement, flange size (27mm), to pump for comfort and nipple stretching/stimulation for adequate milk production every 3 hours (8 times in 24 hours). Mother voiced understanding of the education shared along with mom and baby guide for additional resource information. Reported to the primary RN.
[2021-09-19 13:19] LABS: Hematocrit 21.1 % (37.0-47.0); Hemoglobin 7.1 g/dL (12.0-15.0); Lymphocytes Percent Auto 7.5 % (18.3-44.2); Mean Corpuscular HGB Conc 33.6 g/dl (32-36); Mean Corpuscular Hemoglobin 29.1 pg (26-34); Mean Corpuscular Volume 86.5 fl (80-100); Monocytes Absolute Auto 1.3 K/mm3 (0.1-0.6); Monocytes Percent Auto 5.4 % (2.6-8.5); Neutrophils Percent Auto 87.1 % (45.5-73.1); Platelet Count Result 140 k/mm3 (150-375); Red Blood Count 2.44 M/mm3 (4.2-5.4); Red Cell Distribution Width 12.5 % (11.5-14.5); White Blood Count 24.1 K/mm3 (4.5-10.0)
--- NOTE | 2021-09-19 13:48 | PC.NURSE ---
1340 - Primary RN reported infant had a blood sugar of 53, then went to mother and was placed skin to skin between approximately 2095-0259. 1342 Consulted with patient to assess needs related to . Mother works well with her with encouragement. Mother states infant was stimulated with massage, multiple position changes and encouraged to wake and feed and has not attempted. is sleepy and reluctant. RN assisting with ADL's due to not having a support person present at this time. Mom was encouraged to pump for possible collection of human milk. Reported to primary RN.
[2021-09-19 14:58] LABS: Alanine Aminotransferase 14 U/L (6-35); Albumin Level 2.7 g/dL (3.5-5.1); Alkaline Phosphatase 116 U/L (38-126); Anion Gap 2 mmol/L (8-16); Aspartate Amino Transferase 24 U/L (14-36); Bilirubin,Total 0.2 mg/dL (0.2-1.3); Blood Urea Nitrogen 10 mg/dL (7-17); Calcium 6.3 mg/dL (8.4-10.2); Carbon Dioxide 25 mmol/L (22-30); Chloride 105 mmol/L (98-107); Estimated CRCL calculation 69 ml/min; Estimated Glomerular Filt Rate > 60; Glucose 114 mg/dL (65-110); Potassium 3.9 mmol/L (3.4-5.0); Sodium 132 mmol/L (137-145); Uric Acid 5.4 mg/dL (2.5-7.5)
[2021-09-19 15:18] LABS: Fibrinogen 253 mg/dl (215-510)
--- NOTE | 2021-09-19 15:42 | PC.NURSE ---
[id number] Assessed needs of the patient due to recovering after a C/S with a QBL > 1000 mls, Magnesium Sulfate infusing and no support person present. RN syringe fed 2.5 mls of expressed breastmilk to infant. Primary RN is present caring for patient.
[2021-09-19] MEDS: LABETALOL HCL 100 MG TABLET 200 MG PO (18:45)
[2021-09-19] MEDS: LACTATED RINGERS 1,000 ML 75 ML (19:55)
[2021-09-19] MEDS: IBUPROFEN 600 MG TABLET PO (19:58)
--- NOTE | 2021-09-19 23:50 | PC.NURSE ---
Mckinley, spouse, at bedside.
[2021-09-20] VITALS (10 sets, daily range): BP systolic 126–161; BP diastolic 79–97; PULSE 67–83; RESP 16–18; TEMP 36.3–36.9; O2SAT 96–100
[2021-09-20 05:13] LABS: Hematocrit 30.6 % (37.0-47.0); Hemoglobin 10.3 g/dL (12.0-15.0)
[2021-09-20] MEDS: LABETALOL HCL 100 MG TABLET 200 MG PO ×2 (05:56→17:57)
--- NOTE | 2021-09-20 07:47 | PM.OBPNVD ---
OB - PN: Subj Subjective Date/time seen: 09/20/21 07:47 Patient comments: no complaints, pain well controlled, tolerating diet and flatus present OB - PN: Obj Data Labs CBC & Chem 7: 09/20/21 04:38 09/19/21 14:41 Labs: Laboratory Results - last 24 hr 09/18/21 09/19/21 09/19/21 20:04 13:09 14:41 WBC 24.1 H RBC 2.44 L Hgb 7.1 L Hct 21.1 L MCV 86.5 D MCH 29.1 MCHC 33.6 RDW 12.5 Plt Count 140 L MPV 10.0 Immature Gran % (Auto) 0.0 Neut % (Auto) 87.1 H Lymph % (Auto) 7.5 L [place] % (Auto) 5.4 Eos % (Auto) 0.0 Baso % (Auto) 0.0 L Lymph # (Auto) 1.80 [place] # (Auto) 1.3 H Eos # (Auto) 0.0 Baso # (Auto) 0.0 Abs Immat Gran (auto) 0.00 Absolute Neuts (auto) 21.0 H Absolute Nucleated RBC TNP Nucleated RBC % TNP PT 13.0 INR 1.0 APTT 29.0 Fibrinogen 253 Sodium Potassium Chloride Carbon Dioxide Anion Gap BUN Creatinine Estim Creat Clear Calc Estimated GFR Glucose Uric Acid Calcium Total Bilirubin AST ALT Alkaline Phosphatase Total Protein Albumin Blood Type A Positive Antibody Screen Negative Crossmatch See Detail 09/19/21 09/20/21 14:41 04:38 WBC RBC Hgb 10.3 L D Hct 30.6 L MCV MCH MCHC RDW Plt Count MPV Immature Gran % (Auto) Neut % (Auto) Lymph % (Auto) [place] % (Auto) Eos % (Auto) Baso % (Auto) Lymph # (Auto) [place] # (Auto) Eos # (Auto) Baso # (Auto) Abs Immat Gran (auto) Absolute Neuts (auto) Absolute Nucleated RBC Nucleated RBC % PT INR APTT Fibrinogen Sodium 132 L Potassium 3.9 Chloride 105 Carbon Dioxide 25 Anion Gap 2 L BUN 10 Creatinine 0.80 Estim Creat Clear Calc 69 Estimated GFR > 60 Glucose 114 H Uric Acid 5.4 Calcium 6.3 L Total Bilirubin 0.2 AST 24 ALT 14 Alkaline Phosphatase 116 Total Protein 6.0 L Albumin 2.7 L Blood Type Antibody Screen Crossmatch OB - PN A/P Plan day: 1 Comments: Post Op LTCS - no problems, routine recovery Time Spent With Patient Time: Total time spent is greater than 50% in coordination of care (as documented) at patient's floor/unit and/or counseling patient: Exam Const: General: cooperative, healthy appearing, comfortable and no acute distress Resp: Auscultation: no crackles, no rales, no rhonchi and no wheezes Cardio: Rhythm: regular rhythm Heart sounds: no click and no murmurs GI: Inspection: non-distended Auscultation: normal bowel sounds Extrem: General: normal to inspection, no pedal edema and no calf tenderness
[2021-09-20 08:08] LABS: Mean Platelet Volume 10.1 fl (7.4-10.4); Platelet Count Result 140 k/mm3 (150-375)
[2021-09-20] MEDS: HYDROcodone/acetaminophen (*CRX) 5-325 MG TABLET 1 TAB PO ×3 (08:31→15:30)
[2021-09-20] MEDS: IBUPROFEN 600 MG TABLET PO ×2 (08:31→15:29)
[2021-09-20] MEDS: SIMETHICONE 80 MG TAB.CHEW PO ×2 (08:32→15:29)
[2021-09-20] MEDS: MULTIVIT/MIN/PREN/FOL AC/IRON TABLET 1 TAB PO (08:33)
[2021-09-20] MEDS: DOCUSATE SODIUM 100 MG CAPSULE PO ×2 (08:33→17:18)
[2021-09-20] MEDS: POLYSACCHARIDE IRON COMPLEX 150 MG CAPSULE PO ×2 (08:33→17:18)
[2021-09-20] MEDS: NIFEdipine 30 MG TAB.ER.24 PO ×2 (08:37→17:18)
[2021-09-20 10:58] LABS: Rapid Plasma Reagin Non-Reactive (NonReactive)
--- NOTE | 2021-09-20 15:47 | PC.NURSE ---
[id number] Consulted with patient to assess needs related to . Mother led conversation with her experience with feeding baby so far. Mother works well with her infant with encouragement. Reviewed working with , breast, nipples and how to protect the nipples with an optimal deep latch, good positioning, and good hand washing. Encouraged understanding the benefits of skin to skin, responding to feeding cues, frequencies of feeding 8-12 times in 24 hours (approximately 2-3 hours), duration of feedings, milk production, intake/output feeding sheet and signs of adequate intake encouraging swallowing at the breast. Reviewed the education regarding the risks and benefits of syringe feeding , using the nipple shield tool as a temporary teaching tool and the possibility of delayed lactogenesis related to QBL >1000. Mother is optimistic having a history of a micro premie and still produced a good milk supply. Encouraged good consistent pumping of breast if doesn't latch. Mother verbalized she knows has a small mouth and is not optimally latch at this point. She is confident to keep attempting to teach infant to latch to the breast. Mother voiced understanding of the education shared, calling for assistance if the does not latch or if there is discomfort with . Reported to the primary RN.
[2021-09-21] VITALS (8 sets, daily range): BP systolic 125–141; BP diastolic 77–98; PULSE 72–82; RESP 16–18; TEMP 36.3–36.4; O2SAT 99–100
[2021-09-21] MEDS: HYDROcodone/acetaminophen (*CRX) 5-325 MG TABLET 1 TAB PO ×4 (00:08→22:23)
[2021-09-21] MEDS: IBUPROFEN 600 MG TABLET PO ×4 (00:09→22:22)
[2021-09-21] MEDS: SIMETHICONE 80 MG TAB.CHEW PO ×2 (00:09→07:38)
[2021-09-21] MEDS: NIFEdipine 30 MG TAB.ER.24 PO ×2 (06:04→19:04)
[2021-09-21] MEDS: LABETALOL HCL 100 MG TABLET 200 MG PO ×2 (06:05→19:04)
--- NOTE | 2021-09-21 07:04 | PM.OBPNVD ---
OB - PN: Subj Subjective Date/time seen: 09/21/21 07:04 Patient comments: no complaints and pain well controlled baby status: nursing well [place] feeding status: pumping and bottle feeding Narrative: Denies JASON/BV/EP. OB - PN: Obj Data Labs CBC & Chem 7: 09/20/21 04:38 09/19/21 14:41 Labs: Laboratory Results - last 24 hr 09/18/21 09/20/21 20:04 04:37 Plt Count 140 L MPV 10.1 RPR Non-reactive OB - PN A/P Plan day: 3 Plan: routine care Comments: BPs normal or mildly elevated, continue BP meds HGB 10 after IV iron and blood. DC home tomorrow if stable. Time Spent With Patient Time: Total time spent is greater than 50% in coordination of care (as documented) at patient's floor/unit and/or counseling patient: Exam Narrative: NAD abdomen soft, appropriately tender, incision CDI Extremities nontender with 1+ edema
[2021-09-21] MEDS: MULTIVIT/MIN/PREN/FOL AC/IRON TABLET 1 TAB PO (07:38)
[2021-09-21] MEDS: POLYSACCHARIDE IRON COMPLEX 150 MG CAPSULE PO ×2 (07:38→16:25)
[2021-09-21] MEDS: DOCUSATE SODIUM 100 MG CAPSULE PO ×2 (07:38→16:25)
[2021-09-22 05:12] VITALS: BP 133/89
[2021-09-22 07:30] VITALS: BP 127/95; PULSE 91; RESP 16; TEMP 37.1; O2SAT 100
[2021-09-22] MEDS: SIMETHICONE 80 MG TAB.CHEW PO (07:32)
[2021-09-22] MEDS: HYDROcodone/acetaminophen (*CRX) 5-325 MG TABLET 1 TAB PO ×2 (07:33→10:50)
[2021-09-22] MEDS: IBUPROFEN 600 MG TABLET PO (07:33)
[2021-09-22 07:34] VITALS: PULSE 91
[2021-09-22] MEDS: DOCUSATE SODIUM 100 MG CAPSULE PO (07:34)
[2021-09-22] MEDS: MULTIVIT/MIN/PREN/FOL AC/IRON TABLET 1 TAB PO (07:34)
[2021-09-22] MEDS: TETANUS,DIPHTHERIA,AC PERTUSSIS ADULT (0.5 ML) BOOSTRIX IM (07:34)
[2021-09-22] MEDS: LABETALOL HCL 100 MG TABLET 200 MG PO (07:34)
[2021-09-22] MEDS: NIFEdipine 30 MG TAB.ER.24 PO (07:34)
[2021-09-22] MEDS: POLYSACCHARIDE IRON COMPLEX 150 MG CAPSULE PO (07:34)
[2021-09-22 12:15] VITALS: BP 150/90
--- NOTE | 2021-09-22 13:17 | PM.OBPNVD ---
OB - PN: Subj Subjective Date/time seen: 09/22/21 13:17 Patient comments: no complaints, pain well controlled, incisional pain, tolerating diet and flatus present OB - PN: Obj Data Labs CBC & Chem 7: 09/20/21 04:38 09/19/21 14:41 OB - PN A/P Plan day: 4 Plan: routine care, discharge home and other Comments: Incision check in one week. Given precautions Time Spent With Patient Time: Total time spent is greater than 50% in coordination of care (as documented) at patient's floor/unit and/or counseling patient: Exam Const: General: comfortable, no acute distress and alert Resp: Effort & Inspection: normal respiratory effort Auscultation: no crackles, no rales and no rhonchi Cardio: Rate: regular rate Heart sounds: no click, no murmurs and no rubs GI: Inspection: non-distended GI Palp: No Tenderness to palpation present (GI) Auscultation: normal bowel sounds Other: Incision - CDI Extrem: General: normal to inspection, no pedal edema and no calf tenderness
--- NOTE | 2021-09-22 13:18 | PM.OBDSVD ---
DS: Admitting Diagnosis Discharge Date 09/22/21 Admitting Diagnosis term 34 week DS: Discharge Diagnosis Discharge Diagnosis (1) Severe preeclampsia: Code(s): O14.10 - Severe pre-eclampsia, unspecified trimester Status: Acute OB - DS: Summary OB Procedures : None OB Procedures Intrapartum: OB Procedures: : None Peripartum Data Procedures: Procedures Operation Date: 09/18/21 20:30 Actual Procedure Side Surgeon p Section Bilateral Sydnie Corrigan MD Time Spent with Patient Time attestation: Total time spent providing and/or coordinating discharge services: DS: Data Data Completed and Pending Completed studies during hospitalization: Pending at discharge 09/18/21 21:13 Surgical [PTH] Routine Surgical [PTH] Routine Surgical [PTH] Routine Discharge Plan Discharge Consulting providers: Skylar Fung ; Valeria Contreras Discharging Clinician: Sydnee Thakkar Patient Disposition: Home, Self-Care Activity: pelvic rest Diet: regular Discharge Instructions: Education: Mom and Baby Guide Given to: Mother Follow-Up: Call your delivering provider's office for an appointment to be seen in: 1 Week Mom and baby should come to the [facility] for the follow-up appointment. Appointment Date/Time: September 24, 2021 at 8:00 am What to expect at your follow-up visit: Blood Pressure Check Physical Assessment Call [phone] if you are unable to keep your appointment time. BREAST CARE: * Wear a snug supportive bra. * For engorgement discomfort: Breast Feeding: * Apply warm moist washcloths * Express milk as needed to relieve engorgement * Wear loose clothing * For sore nipples: * Identify correct latch-on * Apply warm moist washcloths before and after nursing * Air dry nipples after nursing * May apply Lansinoh cream to nipples ABDOMINAL INCISION: * Allow incision to air dry * Do NOT use lotions for powders on your incision * When showering, allow soap and water to run over the incision, but do not wash incision PERINEAL CARE: * Until bleeding stops, use your [place] bottle after urinating * Change your pad frequently throughout the day * You may take sitz baths several times a day (fill your bathtub with warm water and soak for 20 minutes.) Do NOT bathe in the water * No tub baths until seen by your physician - You may shower ACTIVITY: * Rest as much as possible. * Do not exercise or lift anything heavier than your baby (such as laundry or other children.) * Avoid stairs or driving as much as possible. * Do not put anything into the vagina. No douching, tampons, or sexual activity until seen by physician. NOTIFY PHYSICIAN IF YOU HAVE ANY QUESTIONS OR IF ANY OF THE FOLLOWING SYMPTOMS OCCUR: * If your episiotomy or incision becomes red, swollen, or more painful than what you have experienced in the hospital. * If your vaginal bleeding becomes foul smelling. * If your vaginal bleeding becomes more heavy than a period or if your bleeding changes from pink to bright red. However, you may pass an occasional walnut-sized clot once or twice for the first week . * If you experience a sharp, shooting pain in you calves. * If you discover a hard, reddened area on your breast or if you experience flu-like symptoms. DIET: * Eat regular, well-balanced meals. * Drink plenty of fluids daily. If , drink to thirst. Patient Instructions: Antibiotic Form Stand Alone Forms: General Discharge Information Follow-up/Referrals: Sydnee Thakkar MD [Physician] - Discharge Medications: New hydrocodone-acetaminophen 5-325 mg tablet 1 tablet PO Q4H PRN (Reason: pain) Qty: 25 0RF Continued aspirin [Adult Low Dose Aspirin] 81 mg Tablet,Delayed Release (Dr/Ec) 162 mg PO DAILY nifedipine [Procardia XL] 60 mg Tablet Extended Release 24h
== END 2021-09-22 13:53 | disposition home or self-care (01) | DRG 784 ==
LOC: ANHOB2 09-22 13:27 → ANHLDR 09-24 10:39 → ANHOB2 09-24 10:39
PROVIDERS: Admitting Provider Obstetrics & Gynecology; Visit Provider Obstetrics & Gynecology
DX: O14.14 Severe pre-eclampsia complicating childbirth (principal); D62 Acute posthemorrhagic anemia; Z37.0 Single live birth; Z3A.35 35 weeks gestation of pregnancy; O90.81 Anemia of the puerperium; O34.211 Maternal care for low transverse scar from previous cesarean delivery; O67.8 Other intrapartum hemorrhage; O24.429 Gestational diabetes mellitus in childbirth, unspecified control; Z30.2 Encounter for sterilization
CPT/HCPCS: 36415; 36430; 80053; 84550; 85014; 85018; 85025; 85049; 85384; 85610; 85730; 86592; 86850; 86900; 86901; 86920; 88302; 88307; 90715; A9270; J0131; J0690; J1756; J1885; J2270; J2274; J2405; J2590; J3475; J7120; P9016

== ENCOUNTER 2022-09-20 08:54 | Outpatient (CLI) | payer OTHER, SELFPAY ==
--- NOTE | ~2022-09-20 | MM_ITS ---
EXAMINATION: MM screening suzy BI w christina HISTORY: Screening mammogram TECHNIQUE: Craniocaudal and mediolateral oblique 3-D tomosynthesis images were obtained and synthetic 2-D images were generated. CAD analysis was submitted and interpreted. COMPARISON: No prior mammogram is available for comparison at this institution. BREAST PARENCHYMAL COMPOSITION: The breasts are heterogeneously dense, which may obscure small masses . FINDINGS: There is no evidence of suspicious mass, calcification, or architectural distortion to sugg est malignancy in either breast. There has been no suspicious interval change. IMPRESSION: 1. No mammographic evidence of malignancy. 2. Recommend routine screening mammography in one year. BI-RADS Category 1: Negative Reviewed, dictated and finalized at location A.
--- NOTE | ~2022-09-20 | XR_ITS ---
EXAMINATION: XR chest 2V 09/20/2022 09:37 INDICATION: Dyspnea PROCEDURE: 2 view chest COMPARISON: No prior studies for comparison. FINDINGS: The lungs are clear. The cardiomediastinal silhouette is within normal limits. There are no pleural effusions. There is no pneumothorax suspected. IMPRESSION: 1: NO ACUTE CARDIOPULMONARY DISEASE. Reviewed, dictated and finalized at location []
--- NOTE | 2022-09-20 09:52 | ECG_ITS ---
Measurements Intervals [place] Rate: 93 P: 55 DE: 169 QRS: 67 QRSD: 82 T: -5 QT: 364 QTc: 453 Interpretive Statements SINUS RHYTHM NONSPECIFIC T-WAVE ABNORMALITY BORDERLINE ECG NO PREVIOUS ECG AVAILABLE FOR COMPARISON Electronically Signed On 09-20-2022 16:11:44 CDT by Yoseph Gray M.D.
== END 2022-09-20 08:55 | disposition home or self-care (01) ==
LOC: ANHIMG 08:57
PROVIDERS: PCP Family Medicine; Visit Provider Physician Assistant Medical
DX: Z12.31 Encounter for screening mammogram for malignant neoplasm of breast (principal); R06.00 Dyspnea, unspecified; I10 Essential (primary) hypertension; R94.31 Abnormal electrocardiogram [ECG] [EKG]
CPT/HCPCS: 71046; 77063; 77067; 93005

== ENCOUNTER 2022-09-28 15:58 | Emergency (ER) | payer OTHER, SELFPAY ==
[2022-09-28 16:19] VITALS: BP 130/95; PULSE 92; RESP 16; TEMP 36.6; O2SAT 99
[2022-09-28 17:12] LABS: Appearance Urine Cloudy (Clear); Bacteria Urine None Seen /hpf; Bilirubin Urine Negative (Negative); Blood Urine 3+ (Negative); Color Urine Yellow (Yellow); Glucose Urine UA Negative (Negative); Ketones Urine Negative (Negative); Leukocyte Esterase Ur 2+ LEU/UL (Negative); Nitrate Urine Negative (Negative); Non Pathogenic Casts 0-2; Protein Urine 1+ mg/dL (Negative); RBC Urine >100 /hpf (0-2); Specific Grav Ur 1.016 (1.001-1.035); Squamous Epithelial Cell Urine Occasional /hpf (Few); Urobilinogen Urine 0.2 mg/dL (<2.0); WBC Urine >100 /hpf; pH Urine 6.5 (5.0-9.0)
[2022-09-28 17:19] LABS: Add Urine Microscopic? YES
--- NOTE | 2022-09-28 18:09 | ED.FEMALEGU ---
HPI - Female Genitourinary General Chief complaint: Urogenital-Female Stated complaint: urinary symptoms x3 days Time Seen by Provider: 09/28/22 17:40 History of Present Illness HPI Narrative: Patient is a 42-year-old female presenting with dysuria. Patient states that for the last several days she has had burning with urination. States that she initially thought that maybe she was just dehydrated so she tried to increase her fluid intake. States that she continues to have a lot of dysuria as well as mild hematuria. States that she did have some lower back pain a few days ago which has resolved. No fevers or chills. Denies abdominal pain, nausea or vomiting, diarrhea. Denies further complaints. Related Data Home Medications Medication Instructions Recorded Confirmed nifedipine 60 mg tablet,extended 30 mg PO DAILY 09/12/22 09/12/22 release 24 hr (Procardia XL) Allergies Allergy/AdvReac Type Severity Reaction Status Date / Time latex Allergy Rash Verified 09/28/22 15:58 shellfish derived Allergy Rash Verified 09/28/22 15:58 Review of Systems Review of Systems: All systems reviewed & are unremarkable except as noted in HPI and below PMFSH Past Medical History Medical History Absolute anemia Allergies Migraine Surgical History Surgical History History of appendectomy 08/24/2007 Hx of section 2015,2019, &2020 Family History Family History Mother Diabetes mellitus Breast cancer in female Hypertension Father Kidney failure Heart disease Hypertension Diabetes mellitus Sibling Hypertension High cholesterol Social History Social History Smoking status: Former smoker Tobacco type: cigarettes Second hand tobacco smoke exposure: No Alcohol intake: current Drinks per week: 1 Substance use: never Substance use type: does not use Lack of Transportation: No Lack of Food: Never True Current Housing: I Have Housing Concerned About Future Housing: No Difficulty Paying Gas/Electric Bills: No Difficulty Paying for Meds: No Currently Unemployed: No Education: Master's Degree or Higher Difficulty w/ Childcare or Family Care: No Living arrangements: with family Occupation/Education: unemployed Gender identity (if verbalized by the patient): Female Sexual Orientation (if Verbalized by the Patient): Straight or Heterosexual Spiritual care concerns: No Agree to blood products: Yes Exam Narrative: GENERAL: Well-appearing, well-nourished, and in no acute distress. Pleasant and cooperative HEAD: Normocephalic, atraumatic. EYES: PERRLA and EOMI. ENT: Nares clear, no rhinorrhea or epistaxis. Mucous membranes moist. NECK: Supple. CHEST: No respiratory distress. HEART: Regular rate and rhythm ABDOMEN: Soft, nontender, nondistended EXTREMITIES: Normal range of motion. No edema. SKIN: Warm, dry, no rash. NEURO: No focal deficits. Alert and oriented x3. PSYCH: Normal mood and affect. Course Vital Signs Vital signs: Vital Signs Temperature 97.8 F 09/28/22 16:19 Pulse Rate 92 09/28/22 16:19 Respiratory Rate 16 09/28/22 16:19 Blood Pressure 130/95 H 09/28/22 16:19 Pulse Oximetry 99 09/28/22 16:19 Oxygen Delivery Room Air 09/28/22 16:19 Temperature 97.8 F 09/28/22 16:19 Pulse Rate 92 09/28/22 16:19 Respiratory Rate 16 09/28/22 16:19 Blood Pressure 130/95 H 09/28/22 16:19 Pulse Oximetry 99 09/28/22 16:19 Oxygen Delivery Room Air 09/28/22 16:19 MDM - Female Genitourinary MDM Narrative Medical decision making narrative: Patient is a 42-year-old female presenting with dysuria for several days. Vitals are within normal limits. Patient is very well-appearing and in no a
[2022-09-28] MEDS: CEPHALEXIN 500 MG CAPSULE PO (18:14)
== END 2022-09-28 18:32 | disposition home or self-care (01) ==
PROVIDERS: Emergency Provider Emergency Medicine; PCP Family Medicine
DX: N39.0 Urinary tract infection, site not specified (principal); Z86.2 Personal history of diseases of the blood and blood-forming organs and certain disorders involving the immune mechanism; Z87.891 Personal history of nicotine dependence
CPT/HCPCS: 81001; 87077; 87086; 87088; 87186; 99283; A9270

== ENCOUNTER 2023-01-03 23:56 | Emergency (ER) | payer OTHER, SELFPAY ==
[2023-01-04] VITALS: BP 173/94; PULSE 72; RESP 18; TEMP 36.8; O2SAT 100
[2023-01-04 00:17] VITALS: BP 169/107; PULSE 75; RESP 13; TEMP 36.4; O2SAT 100
--- NOTE | 2023-01-04 00:17 | ECG_ITS ---
Measurements Intervals [place] Rate: 71 P: 51 MO: 177 QRS: 60 QRSD: 85 T: 50 QT: 408 QTc: 443 Interpretive Statements SINUS RHYTHM MODERATE ST DEPRESSION [0.05+ mV ST DEPRESSION] ABNORMAL ECG COMPARED TO ECG 09/20/2022 09:57:20 ST (T WAVE) DEVIATION NOW PRESENT Electronically Signed On 01-04-2023 8:31:35 CDT by George Jean M.D.
[2023-01-04] MEDS: diphenhydrAMINE HCl INJ 50 MG/ML VIAL 25 MG IV PUSH (00:34)
[2023-01-04] MEDS: hydrALAZINE HCL 20 MG/ML VIAL 10 MG IV PUSH (00:35)
[2023-01-04] MEDS: PROCHLORPERAZINE EDISYLATE 10 MG/2 ML VIAL IV PUSH (00:36)
--- NOTE | 2023-01-04 00:59 | ED.GENADULT ---
HPI - General Adult General Chief complaint: Headache Stated complaint: high blood pressure Time Seen by Provider: 01/03/23 23:58 History of Present Illness HPI narrative: 42-year-old female with history of hypertension presented to the emergency department for evaluation of elevated blood pressure and headache. Patient reports that over the last week she has had increasingly frequent headaches. Patient states that she has not been checking her blood pressure that often since her physician told her she had been taking it too frequently. Patient did have onset of the headache today and then did check her blood pressure and found it was elevated. Patient has been taking her lisinopril as directed. Patient denies any associate nausea vomiting diarrhea blurred vision or numbness or weakness. Related Data Allergies Allergy/AdvReac Type Severity Reaction Status Date / Time latex Allergy Rash Verified 11/11/22 11:26 shellfish derived Allergy Rash Verified 11/11/22 11:26 Review of Systems Review of Systems: All systems reviewed & are unremarkable except as noted in HPI and below PMFSH Past Medical History Medical History Absolute anemia Allergies Migraine Surgical History Surgical History History of appendectomy 08/24/2007 Hx of section 2015,2019, &2020 Family History Family History Mother Diabetes mellitus Breast cancer in female Hypertension Father Kidney failure Heart disease Hypertension Diabetes mellitus Sibling Hypertension High cholesterol Social History Social History Smoking status: Former smoker Tobacco type: cigarettes Second hand tobacco smoke exposure: No Alcohol intake: current Drinks per week: 1 Substance use: never Substance use type: does not use Lack of Transportation: No Lack of Food: Never True Current Housing: I Have Housing Concerned About Future Housing: No Difficulty Paying Gas/Electric Bills: No Difficulty Paying for Meds: No Currently Unemployed: No Education: Master's Degree or Higher Difficulty w/ Childcare or Family Care: No Living arrangements: with family Occupation/Education: unemployed Gender identity (if verbalized by the patient): Female Sexual Orientation (if Verbalized by the Patient): Straight or Heterosexual Spiritual care concerns: No Agree to blood products: Yes Exam Narrative: APPEARANCE: Well appearing, no pain, no distress, well-nourished. HEAD: normocephalic, atraumatic. EYES: PERRLA/EOMI, conjunctivae clear. NOSE: Normal no drainage EARS:TMS clear with good light reflex. THROAT: Pharynx clear, no exudate. NECK: Supple. No adenopathy, no masses. RESPIRATORY: Airway patent, respirations nonlabored. Clear to auscultation bilaterally, no rales, rhonchi, wheezing. CARDIOVASCULAR: Regular rate and rhythm without murmurs rubs or gallops. ABDOMINAL: Soft, nontender, nondistended, normal bowel sounds MUSCULOSKELETAL: Moves all extremities. Strength/ROM intact, No edema, No calf tenderness. NEURO: Alert. Cranial nerves II through XII intact. SKIN: Warm, dry. Normal Color Course Course Emergency Course: 42-year-old female presented the ED for evaluation of headache and hypertension. Patient reports that her headache resolved with Compazine Benadryl IV fluids. Patient was also treated with hydralazine. On reevaluation patient's headache was urine patient's blood pressure was 120/75. Patient no significant lab normalities. Patient was encouraged of close follow-up with her primary care physician to determine if they want to start on any additional blood pressure medications. All question concerns were addressed and patient was comfortable to plan for discharge and close follow-up
[2023-01-04 01:17] VITALS: BP 118/78; PULSE 87; RESP 20; O2SAT 100
[2023-01-04 01:26] LABS: Basophils Percent Auto 0.5 % (0.2-1.2); Eosinophils Absolute Auto 0.2 K/mm3 (0-0.3); Eosinophils Percent Auto 3.1 % (0-4.4); Hematocrit 36.2 % (37.0-47.0); Hemoglobin 11.2 g/dL (12.0-15.0); Immature Granulocyte Absolute 0.03 K/mm3 (0.00-0.031); Immature Granulocyte Percent A 0.5 % (0-0.5); Lymphocytes Absolute Auto 1.92 K/mm3 (0.9-3.2); Lymphocytes Percent Auto 30.2 % (18.3-44.2); Mean Corpuscular HGB Conc 30.9 g/dl (32-36); Mean Corpuscular Hemoglobin 23.2 pg (26-34); Mean Corpuscular Volume 75.1 fl (80-100); Mean Platelet Volume 9.3 fl (7.4-10.4); Monocytes Absolute Auto 0.5 K/mm3 (0.1-0.6); Monocytes Percent Auto 7.9 % (2.6-8.5); Neutrophils Absolute Auto 3.7 K/mm3 (1.3-6.7); Neutrophils Percent Auto 57.8 % (45.5-73.1); Platelet Count Result 355 k/mm3 (150-375); Red Blood Count 4.82 M/mm3 (4.2-5.4); White Blood Count 6.4 K/mm3 (4.5-10.0)
[2023-01-04 01:41] LABS: Alanine Aminotransferase 17 U/L (6-35); Alkaline Phosphatase 44 U/L (38-126); Anion Gap 8 mmol/L (8-16); Aspartate Amino Transferase 34 U/L (14-36); Bilirubin,Total 0.5 mg/dL (0.2-1.3); Blood Urea Nitrogen 12 mg/dL (7-17); Calcium 8.4 mg/dL (8.4-10.2); Carbon Dioxide 23 mmol/L (22-30); Chloride 106 mmol/L (98-107); Estimated CRCL calculation 66 ml/min; Estimated Glomerular Filt Rate > 60; Glucose 98 mg/dL (65-110); Potassium 3.7 mmol/L (3.4-5.0); Sodium 137 mmol/L (137-145)
[2023-01-04 02:19] VITALS: BP 125/85; PULSE 91; RESP 17; O2SAT 100
--- NOTE | 2023-01-04 02:20 | PC.NURSE ---
Patient is sleeping comfortably
[2023-01-04 03:17] VITALS: BP 131/87; PULSE 95; RESP 17; TEMP 36.6; O2SAT 100
== END 2023-01-04 03:19 | disposition home or self-care (01) ==
PROVIDERS: Emergency Provider Emergency Medicine; PCP Family Medicine
DX: R51.9 Headache, unspecified (principal); I10 Essential (primary) hypertension; D64.9 Anemia, unspecified; Z87.891 Personal history of nicotine dependence; R94.31 Abnormal electrocardiogram [ECG] [EKG]
CPT/HCPCS: 36415; 80053; 85025; 93005; 96374; 96375; 99284; J0360; J0780; J1200; J7050

== ENCOUNTER 2023-01-05 23:40 | Emergency (ER) | payer OTHER, SELFPAY ==
[2023-01-05 23:50] VITALS: BP 148/96; PULSE 106; RESP 20; TEMP 36.2; O2SAT 100
[2023-01-06] MEDS: KETOROLAC 15 MG/ML VIAL (*BKC) IV PUSH (01:49)
[2023-01-06] MEDS: diphenhydrAMINE HCl INJ 50 MG/ML VIAL 25 MG IV PUSH (01:50)
[2023-01-06] MEDS: PROCHLORPERAZINE EDISYLATE 10 MG/2 ML VIAL IV PUSH (01:51)
[2023-01-06] MEDS: SODIUM CHLORIDE 0.9% IV 1,000 ML 999 ML IV CONT (01:54)
--- NOTE | 2023-01-06 03:39 | ED.GENADULT ---
HPI - General Adult General Chief complaint: Headache Stated complaint: HTN, headache, N/V Time Seen by Provider: 01/06/23 01:02 History of Present Illness HPI narrative: 48-year-old female history of hypertension and migraines presented the ED for evaluation of high blood pressure with associated nausea and vomiting. Patient was seen in the emergency room yesterday and had improvement of her symptoms with treatment. Patient returns to the ED for any recurrence of her headache nausea and vomiting. Patient denies any falls or injuries. Related Data Allergies Allergy/AdvReac Type Severity Reaction Status Date / Time latex Allergy Rash Verified 11/11/22 11:26 shellfish derived Allergy Rash Verified 11/11/22 11:26 Review of Systems Review of Systems: All systems reviewed & are unremarkable except as noted in HPI and below PMFSH Past Medical History Medical History Absolute anemia Allergies Migraine Surgical History Surgical History History of appendectomy 08/24/2007 Hx of section 2015,2019, &2020 Family History Family History Mother Diabetes mellitus Breast cancer in female Hypertension Father Kidney failure Heart disease Hypertension Diabetes mellitus Sibling Hypertension High cholesterol Social History Social History Smoking status: Former smoker Tobacco type: cigarettes Second hand tobacco smoke exposure: No Alcohol intake: current Drinks per week: 1 Substance use: never Substance use type: does not use Lack of Transportation: No Lack of Food: Never True Current Housing: I Have Housing Concerned About Future Housing: No Difficulty Paying Gas/Electric Bills: No Difficulty Paying for Meds: No Currently Unemployed: No Education: Master's Degree or Higher Difficulty w/ Childcare or Family Care: No Living arrangements: with family Occupation/Education: unemployed Gender identity (if verbalized by the patient): Female Sexual Orientation (if Verbalized by the Patient): Straight or Heterosexual Spiritual care concerns: No Agree to blood products: Yes Exam Narrative: APPEARANCE: Well appearing, no pain, no distress, well-nourished. HEAD: normocephalic, atraumatic. EYES: PERRLA/EOMI, conjunctivae clear. NOSE: Normal no drainage EARS:TMS clear with good light reflex. THROAT: Pharynx clear, no exudate. NECK: Supple. No adenopathy, no masses. RESPIRATORY: Airway patent, respirations nonlabored. Clear to auscultation bilaterally, no rales, rhonchi, wheezing. CARDIOVASCULAR: Regular rate and rhythm without murmurs rubs or gallops. ABDOMINAL: Soft, nontender, nondistended, normal bowel sounds MUSCULOSKELETAL: Moves all extremities. Strength/ROM intact, No edema, No calf tenderness. NEURO: Alert. Cranial nerves II through XII intact. SKIN: Warm, dry. Normal Color Course Course Emergency Course: 42-year-old female presented the ED for evaluation of headache with persistent nausea and vomiting. Patient was treated with Compazine, Benadryl saline and Toradol and patient reports that her headache and nausea vomiting are resolved. Patient is requesting discharge home. Vital Signs Vital signs: Vital Signs Temperature 97.1 F L 01/05/23 23:50 Pulse Rate 106 H 01/05/23 23:50 Respiratory Rate 20 01/05/23 23:50 Blood Pressure 148/96 H 01/05/23 23:50 Pulse Oximetry 100 01/05/23 23:50 Oxygen Delivery Room Air 01/05/23 23:50 Temperature 97.1 F L 01/05/23 23:50 Pulse Rate 88 01/06/23 03:59 Respiratory Rate 15 01/06/23 03:59 Blood Pressure 140/92 H 01/06/23 03:59 Pulse Oximetry 99 01/06/23 03:59 Oxygen Delivery Room Air 01/05/23 23:50 Medical Decision Making Vital Signs Vital Sign
[2023-01-06 03:59] VITALS: BP 140/92; PULSE 88; RESP 15; O2SAT 99
== END 2023-01-06 04:00 | disposition home or self-care (01) ==
PROVIDERS: Emergency Provider Emergency Medicine; PCP Family Medicine
DX: G43.909 Migraine, unspecified, not intractable, without status migrainosus (principal); R11.2 Nausea with vomiting, unspecified; I10 Essential (primary) hypertension; Z86.2 Personal history of diseases of the blood and blood-forming organs and certain disorders involving the immune mechanism
CPT/HCPCS: 96361; 96374; 96375; 99284; J0780; J1200; J1885; J7030

== ENCOUNTER 2024-01-03 07:14 | Outpatient (CLI) | payer OTHER, SELFPAY ==
--- NOTE | ~2024-01-03 | US_ITS ---
EXAMINATION: US abdomen limited DATE: 01/03/2024 07:49 INDICATION: Abdominal pain TECHNIQUE: Multiple grayscale and Doppler ultrasound images of the abdomen were obtained. COMPARISON: None FINDINGS: The pancreatic head and body are normal in appearance. The pancreatic tail is not visualized. The vi sualized proximal to mid aorta and inferior vena cava are normal. Liver has normal echogenicity and c ontour, with a smooth surface. No liver lesion identified. No intrahepatic biliary duct dilation susp ected. Portal venous flow was seen in the hepatopetal, normal direction and has normal Doppler wavefo rm. There are multiple echogenic and shadowing gallstones within the otherwise normal-appearing gallb ladder with no dilation the gallbladder or abnormal wall thickening. The common bile duct measures up to 2-3 mm. Sonographic Mathews sign was reported as negative by the insurance sales producer. IMPRESSION: 1. Cholelithiasis without biliary ductal dilation or acute cholecystitis. Reviewed, dictated and finalized at location A.
[2024-01-03 08:30] LABS: Alanine Aminotransferase 15 U/L (6-35); Albumin Level 4.3 g/dL (3.5-5.1); Alkaline Phosphatase 50 U/L (38-126); Anion Gap 9 mmol/L (4-12); Aspartate Amino Transferase 22 U/L (14-36); Bilirubin,Total 0.5 mg/dL (0.2-1.3); Blood Urea Nitrogen 15 mg/dL (7-17); Calcium 9.3 mg/dL (8.4-10.2); Carbon Dioxide 25 mmol/L (22-30); Chloride 104 mmol/L (98-107); Cholesterol 169 mg/dL (0-200); Estimated Glomerular Filt Rate 49; Glucose 100 mg/dL (65-110); HDL Direct 57 mg/dL; Lipase 119 U/L (23-300); Potassium 4.1 mmol/L (3.4-5.0); Sodium 138 mmol/L (137-145); Triglycerides 71 mg/dL (<150)
[2024-01-03 08:36] LABS: Iron 48 ug/dL (37-170)
[2024-01-03 08:41] LABS: LDL Cholesterol Direct 81 mg/dL
[2024-01-03 08:43] LABS: Basophils Percent Auto 0.6 % (0.2-1.2); Eosinophils Absolute Auto 0.2 K/mm3 (0-0.3); Eosinophils Percent Auto 2.3 % (0-4.4); Hematocrit 36.7 % (37.0-47.0); Hemoglobin 11.6 g/dL (12.0-15.0); Immature Granulocyte Absolute 0.02 K/mm3 (0.00-0.031); Immature Granulocyte Percent A 0.3 % (0-0.5); Lymphocytes Absolute Auto 1.06 K/mm3 (0.9-3.2); Lymphocytes Percent Auto 15.2 % (18.3-44.2); Mean Corpuscular HGB Conc 31.6 g/dl (32-36); Mean Corpuscular Hemoglobin 24.6 pg (26-34); Mean Corpuscular Volume 77.9 fl (80-100); Mean Platelet Volume 9.4 fl (7.4-10.4); Monocytes Absolute Auto 0.5 K/mm3 (0.1-0.6); Monocytes Percent Auto 7.2 % (2.6-8.5); Neutrophils Absolute Auto 5.2 K/mm3 (1.3-6.7); Neutrophils Percent Auto 74.4 % (45.5-73.1); Platelet Count Result 343 k/mm3 (150-375); Red Blood Count 4.71 M/mm3 (4.2-5.4); Red Cell Distribution Width 13.9 % (11.5-14.5)
[2024-01-03 08:47] LABS: Percent Iron Saturation 11 % (20-50)
[2024-01-03 09:12] LABS: Ferritin 5.81 ng/mL (6.24-137)
== END 2024-01-03 07:15 | disposition home or self-care (01) ==
PROVIDERS: PCP Family Medicine; Visit Provider Family Medicine
DX: K80.20 Calculus of gallbladder without cholecystitis without obstruction (principal); D64.9 Anemia, unspecified; E78.2 Mixed hyperlipidemia; I10 Essential (primary) hypertension
CPT/HCPCS: 36415; 76705; 80053; 80061; 82728; 83540; 83550; 83690; 85025

== ENCOUNTER 2024-02-20 01:48 | Day surgery (SDC) | payer OTHER, SELFPAY ==
[2024-02-05 14:35] VITALS: BMI 24.0
--- NOTE | 2024-02-20 10:14 | SUR.PREOP ---
While preparing patient for her procedure she said she did not take any colon prep medications. She showed me her paperwork that she received in the mail and it did not include any information about the medications for the colon prep. Patient requests to reschedule - instructed to call when ready to reschedule.
== END 2024-02-20 10:13 | disposition home or self-care (01) ==
PROVIDERS: PCP Family Medicine; Referring Provider Nurse Practitioner Family; Visit Provider Internal Medicine Gastroenterology
PROC: 0DJ08ZZ Inspection of Upper Intestinal Tract, Via Natural or Artificial Opening Endoscopic (ICD-10-PCS; CPT 43235; principal; 2024-02-20 11:00)
DX: D50.9 Iron deficiency anemia, unspecified (principal); K21.9 Gastro-esophageal reflux disease without esophagitis; Z53.8 Procedure and treatment not carried out for other reasons
CPT/HCPCS: 99211; G0463

== ENCOUNTER 2024-03-03 08:20 | Outpatient (CLI) | payer OTHER, SELFPAY ==
[2024-03-03 08:51] LABS: Add Urine Microscopic? YES; Appearance Urine Clear (Clear); Bacteria Urine None Seen /hpf; Bilirubin Urine Negative (Negative); Blood Urine 2+ (Negative); Color Urine Dark Yellow (Yellow); Glucose Urine UA Negative (Negative); Ketones Urine Negative (Negative); Leukocyte Esterase Ur Negative LEU/UL (Negative); Nitrate Urine Negative (Negative); Non Pathogenic Casts 0-2; Protein Urine Negative (Negative); Specific Grav Ur 1.016 (1.001-1.035); Squamous Epithelial Cell Urine Occasional /hpf (Few); Urobilinogen Urine 0.2 mg/dL (<2.0); WBC Urine 0-5 /hpf (0-3); pH Urine 6.5 (5.0-9.0)
[2024-03-03 09:14] LABS: Anion Gap 8 mmol/L (4-12); Blood Urea Nitrogen 19 mg/dL (7-17); Carbon Dioxide 26 mmol/L (22-30); Chloride 103 mmol/L (98-107); Estimated Glomerular Filt Rate 54; Glucose 87 mg/dL (65-110); Potassium 3.5 mmol/L (3.4-5.0); Sodium 137 mmol/L (137-145)
[2024-03-05 04:59] LABS: Protein, Total 7.7 g/dL (6.1-8.1)
[2024-03-05 13:09] LABS: Albumin 4.1 g/dL (3.8-4.8); Alpha 1 Globulin 0.3 g/dL (0.2-0.3); Alpha 2 Globulin 0.6 g/dL (0.5-0.9); Beta 1 Globulin 0.5 g/dL (0.4-0.6); Gamma Globulin 1.9 g/dL (0.8-1.7)
[2024-03-08 16:33] LABS: Immunoglobulin A 436 mg/dL (47-310); TTG IGA AB <1.0 U/mL
== END 2024-03-03 08:21 | disposition home or self-care (01) ==
LOC: ANHLAB 08:21
PROVIDERS: PCP Family Medicine; Referring Provider Family Medicine; Visit Provider Nurse Practitioner Family
DX: N28.9 Disorder of kidney and ureter, unspecified (principal); R77.9 Abnormality of plasma protein, unspecified; D50.9 Iron deficiency anemia, unspecified
CPT/HCPCS: 36415; 80048; 81001; 82784; 84155; 84165; 86364

== ENCOUNTER 2024-03-05 10:33 | Outpatient (CLI) | payer OTHER, SELFPAY ==
[2024-03-08 12:18] LABS: H pylori Ag Stool RESULT: Not Detected
== END 2024-03-05 10:34 | disposition home or self-care (01) ==
LOC: ANHLAB 10:34
PROVIDERS: PCP Family Medicine; Visit Provider Nurse Practitioner Family
DX: K21.9 Gastro-esophageal reflux disease without esophagitis (principal); R10.13 Epigastric pain
CPT/HCPCS: 87338

== ENCOUNTER 2024-03-17 01:28 | Day surgery (SDC) | payer OTHER, SELFPAY ==
[2024-03-15 08:53] VITALS: BMI 24.0
[2024-03-17 08:56] VITALS: BP 104/73; PULSE 92; RESP 16; TEMP 36.4; O2SAT 100; BMI 23.8
[2024-03-17 09:00] LABS: BEDSIDEPREGUCG Negative (Negative)
[2024-03-17] MEDS: LACTATED RINGERS 1,000 ML 150 ML IV CONT (09:07)
--- NOTE | 2024-03-17 09:26 | WPDANESEPPF ---
Anes - Initial Pre Proc Eval Procedure: Operation Date: 03/17/24 10:00 Proposed Procedures p Esophagogastroduodenoscopy & Colonoscopy - Gabo Peoples MD Date/Time: 03/17/24 09:26 Surgeon: Gabo Peoples MD Pre Op Diagnosis: ANEMIA Patient Data Age: 43 Gender: F Height: 1.52 m Weight: 55.5 kg Last Vital Signs Temp 36.4 C L 03/17/24 08:56 Pulse 92 03/17/24 08:56 Resp 16 03/17/24 08:56 BP 104/73 03/17/24 08:56 Pulse Ox 100 03/17/24 08:56 O2 Del Method Room Air 03/17/24 08:56 Allergies Allergy/AdvReac Type Severity Reaction Status Date / Time latex Allergy Rash Verified 03/17/24 08:55 shellfish derived Allergy Rash Verified 03/17/24 08:55 Home Medications ?Medication ?Instructions ?Recorded ?Confirmed ?Type potassium chloride 10 mEq 10 meq PO .TWICE WEEKLY #90 caps 04/27/23 03/17/24 Rx capsule,extended release hydrochlorothiazide 25 mg tablet 25 mg PO DAILY #90 tabs 10/24/23 03/17/24 Rx lisinopril 20 mg tablet 20 mg PO DAILY #90 tabs 10/24/23 03/17/24 Rx ferrous sulfate 325 mg (65 mg 325 mg PO DAILY #100 tabs 01/08/24 03/17/24 Rx iron) tablet omeprazole 40 mg capsule,delayed 40 mg PO BID #60 caps 01/16/24 03/17/24 Rx release labetalol 100 mg tablet 100 mg PO DAILY 02/05/24 03/17/24 History riboflavin (vitamin B2) 100 mg PO DAILY 02/05/24 03/17/24 History topiramate 25 mg tablet (Topamax) 50 mg (2 x 25 mg) PO DAILY #180 02/28/24 03/17/24 Rx tabs Laboratory Tests 03/17/24 08:56 POC Urine HCG, Qual Negative (Negative) Patient hx anesthesia problems: none Family hx anesthesia problems: none Results Review: All pre-operative results and documents have been reviewed as part of the pre-operative evaluation. [facility] Past Medical History Medical History Migraine Allergies Surgical History Surgical History Hx of section 2015,2019, &2020 History of appendectomy 08/24/2007 Family History Family History Mother Diabetes mellitus Breast cancer in female Hypertension Father Kidney failure Heart disease Hypertension Diabetes mellitus Sibling Hypertension High cholesterol Social History Social History Smoking status: Never smoker Tobacco type: cigarettes Second hand tobacco smoke exposure: No Alcohol intake: current Drinks per week: 1 Substance use: never Substance use type: does not use Lack of Transportation: No Lack of Food: Never True Current Housing: I Have Housing Concerned About Future Housing: No Difficulty Paying Gas/Electric Bills: No Difficulty Paying for Meds: No Currently Unemployed: No Education: Master's Degree or Higher Difficulty w/ Childcare or Family Care: No Living arrangements: with family Occupation/Education: unemployed Gender identity (if verbalized by the patient): Female Sexual Orientation (if Verbalized by the Patient): Straight or Heterosexual Spiritual care concerns: No Agree to blood products: Yes Anes - Eval Final PreProcedure Day of Procedure 03/17/24 09:26 Patient weight: normal Heart: regular rate and rhythm Lungs: clear to auscultation Airway: Mallampati scale class II Neurological: alert and oriented Last oral intake: >/= 8 hours ASA classification: III Emergent: no Anesthetic plan: proceed Anesthesia type and monitoring: general GIVS and standard monitoring Results Review: All pre-operative results and documents have been reviewed as part of the pre-operative evaluation. Informed Consent: The patient's anesthetic plan and its attendant risks and benefits were discussed with the patient/family/POA. Questions were solicited and answers provided to the satisfaction of the patient/family/POA.
--- NOTE | 2024-03-17 10:09 | PM.IMHP ---
H&P: HPI History of Present Illness Date/Time: 03/17/24 10:09 Chief Complaint: GERD-rectal bleeding. Narrative: The patient has longstanding heartburn which is partially controlled by omeprazole 40 mg once a day. However, when she eats a minimal amount of spicy food or condimented items, she feels heartburn. there is no history of dysphagia. In addition, the patient has somewhat irregular bowel movements and intermittent rectal bleeding. She is referred for EGD and colonoscopy. Review of Systems Review of Systems: All systems reviewed & are unremarkable except as noted in HPI and below PMFSH Past Medical History Medical History Migraine Allergies Surgical History Surgical History Hx of section 2015,2019, &2020 History of appendectomy 08/24/2007 Family History Family History Mother Diabetes mellitus Breast cancer in female Hypertension Father Kidney failure Heart disease Hypertension Diabetes mellitus Sibling Hypertension High cholesterol Social History Social History Smoking status: Never smoker Tobacco type: cigarettes Second hand tobacco smoke exposure: No Alcohol intake: current Drinks per week: 1 Substance use: never Substance use type: does not use Lack of Transportation: No Lack of Food: Never True Current Housing: I Have Housing Concerned About Future Housing: No Difficulty Paying Gas/Electric Bills: No Difficulty Paying for Meds: No Currently Unemployed: No Education: Master's Degree or Higher Difficulty w/ Childcare or Family Care: No Living arrangements: with family Occupation/Education: unemployed Gender identity (if verbalized by the patient): Female Sexual Orientation (if Verbalized by the Patient): Straight or Heterosexual Spiritual care concerns: No Agree to blood products: Yes Meds Home Medications and Allergies Home Medications ?Medication ?Instructions ?Recorded ?Confirmed ?Type potassium chloride 10 mEq 10 meq PO .TWICE WEEKLY #90 caps 04/27/23 03/17/24 Rx capsule,extended release hydrochlorothiazide 25 mg tablet 25 mg PO DAILY #90 tabs 10/24/23 03/17/24 Rx lisinopril 20 mg tablet 20 mg PO DAILY #90 tabs 10/24/23 03/17/24 Rx ferrous sulfate 325 mg (65 mg 325 mg PO DAILY #100 tabs 01/08/24 03/17/24 Rx iron) tablet omeprazole 40 mg capsule,delayed 40 mg PO BID #60 caps 01/16/24 03/17/24 Rx release labetalol 100 mg tablet 100 mg PO DAILY 02/05/24 03/17/24 History riboflavin (vitamin B2) 100 mg PO DAILY 02/05/24 03/17/24 History topiramate 25 mg tablet (Topamax) 50 mg (2 x 25 mg) PO DAILY #180 02/28/24 03/17/24 Rx tabs Allergies Allergy/AdvReac Type Severity Reaction Status Date / Time latex Allergy Rash Verified 03/17/24 08:55 shellfish derived Allergy Rash Verified 03/17/24 08:55 Vital Signs Vital Signs - 24 hr 03/17/24 08:56 Temperature 97.5 F L Pulse Rate 92 Respiratory Rate 16 Blood Pressure 104/73 Pulse Oximetry 100 Oxygen Delivery Room Air Exam Const: General: cooperative and healthy appearing Resp: Effort & Inspection: normal respiratory effort and able to speak in complete sentences Auscultation: clear to auscultation bilaterally Cardio: Rate: regular rate Rhythm: regular rhythm GI: Inspection: normal to inspection GI Palp: No No hepatosplenomegaly present Auscultation: normal bowel sounds Rectal Exam: deferred Skin: General skin exam: normal color Psych: Appearance: grossly normal Mental Status: mental status grossly normal Assessment and Plan Assessment and plan (1) GERD (gastroesophageal reflux disease): Qualifiers: Esophagitis presence: esophagitis presence not specified Qualified Code(s): K21.9 - Gastro-esophageal reflux disease without esophagitis Code(s): K21.9 - Gastro-esophageal reflux disease without esophagitis Status: Acute Assessment and Plan: The patient is deemed a good candidate for both procedures. Consent signed. Will proceed. (2) Epigastric pain: Code(s): R10.13 - Epigastric pain Status: Acute (3) Painless rectal bleeding: Code(s): K62.5 - Hemorrhage of anus and rectum Status: Acute
--- NOTE | 2024-03-17 10:29 | SUR.OPER ---
EGD [id number]. Colon start time 1033.
[2024-03-17 10:47] VITALS: BP 90/57; PULSE 68; RESP 20; O2SAT 100
[2024-03-17 10:57] VITALS: BP 129/85; PULSE 64; RESP 19; O2SAT 100
[2024-03-17 11:07] VITALS: BP 97/64; PULSE 70; RESP 19; O2SAT 100
[2024-03-17 11:17] VITALS: BP 105/72; PULSE 67; RESP 15; O2SAT 100
[2024-03-17 11:27] VITALS: BP 107/62; PULSE 64; RESP 14; O2SAT 100
== END 2024-03-17 11:42 | disposition home or self-care (01) ==
PROVIDERS: Anesthesiology; PCP Family Medicine; Visit Provider Internal Medicine Gastroenterology
PROC: 0DJ08ZZ Inspection of Upper Intestinal Tract, Via Natural or Artificial Opening Endoscopic (ICD-10-PCS; CPT 43235; principal; 2024-03-17 10:00)
DX: K62.5 Hemorrhage of anus and rectum (principal); K21.9 Gastro-esophageal reflux disease without esophagitis
CPT/HCPCS: 45378; 43239; 88305; J2003; J2371; J2704; J7120

== ENCOUNTER 2024-09-17 19:36 | Emergency (ER) | payer OTHER, SELFPAY ==
--- NOTE | ~2024-09-17 | XR_ITS ---
CHEST RADIOGRAPH CLINICAL HISTORY: myalgia . COMPARISON: 09/21/2019 TECHNIQUE: Single portable view of the chest. FINDINGS The cardiomediastinal silhouette is unremarkable. Pectus excavatum is incidentally noted, artifactually increasing the opacification of the right heart border. The lungs are clear. IMPRESSION: No focal infiltrate or effusion. Reviewed, dictated and finalized at location A.
[2024-09-17 19:40] VITALS: BP 105/67; PULSE 92; RESP 20; TEMP 36.8; O2SAT 100
--- NOTE | 2024-09-17 22:47 | ECG_ITS ---
Test Date: 2024-09-17 23:19:59 Measurements Intervals [place] Rate: 79 P: 67 CA: 195 QRS: 70 QRSD: 89 T: 61 QT: 399 QTc: 458 Interpretive Statements SINUS RHYTHM POSSIBLE LEFT ATRIAL ENLARGEMENT BORDERLINE ECG No previous ECG available for comparison Electronically Signed On 09-18-2024 07:19:11 CDT by Fito Hill D.O.
[2024-09-17 23:13] VITALS: BP 97/76; PULSE 84; RESP 14; O2SAT 100
[2024-09-17 23:16] LABS: Basophils Percent Auto 0.7 % (0.2-1.2); Eosinophils Absolute Auto 0.2 K/mm3 (0-0.3); Eosinophils Percent Auto 3.4 % (0-4.4); Hematocrit 35.1 % (37.0-47.0); Hemoglobin 12.3 g/dL (12.0-15.0); Immature Granulocyte Absolute 0.04 K/mm3 (0.00-0.031); Immature Granulocyte Percent A 0.7 % (0-0.5); Lymphocytes Absolute Auto 1.35 K/mm3 (0.9-3.2); Mean Corpuscular Hemoglobin 29.4 pg (26-34); Mean Platelet Volume 8.4 fl (7.4-10.4); Monocytes Absolute Auto 0.5 K/mm3 (0.1-0.6); Monocytes Percent Auto 9.1 % (2.6-8.5); Neutrophils Absolute Auto 3.5 K/mm3 (1.3-6.7); Neutrophils Percent Auto 62.1 % (45.5-73.1); Platelet Count Result 285 k/mm3 (150-375); Red Blood Count 4.18 M/mm3 (4.2-5.4); Red Cell Distribution Width 11.9 % (11.5-14.5); White Blood Count 5.6 K/mm3 (4.5-10.0)
[2024-09-17 23:25] LABS: Lactic Acid Reflex 0.8 mmol/L (0.7-2.0)
[2024-09-17 23:29] LABS: Alanine Aminotransferase 14 U/L (6-35); Albumin Level 3.7 g/dL (3.5-5.1); Alkaline Phosphatase 37 U/L (38-126); Anion Gap 10 mmol/L (4-12); Anisocytosis 1+; Aspartate Amino Transferase 22 U/L (14-36); Band Neutrophils Percent 0 % (0-6); Bilirubin,Total 0.3 mg/dL (0.2-1.3); Blood Urea Nitrogen 19 mg/dL (7-17); CRP 0.9 mg/dL (<1.0); Calcium 8.7 mg/dL (8.4-10.2); Carbon Dioxide 20 mmol/L (22-30); Chloride 107 mmol/L (98-107); Creatine Kinase 59 U/L (30-135); Estimated CRCL calculation 44 ml/min; Estimated Glomerular Filt Rate 49; Glucose 101 mg/dL (65-110); Hypochromasia 1+; Magnesium 2.2 mg/dL (1.6-2.3); Platelet Estimate Adequate (Adequate); Potassium 3.3 mmol/L (3.4-5.0); Smudge Cells PRESENT; Sodium 137 mmol/L (137-145); Total Protein 7.4 g/dL (6.3-8.2)
[2024-09-17 23:30] LABS: Atypical Lymphocytes Present; Schistocytes None Seen
[2024-09-17 23:36] VITALS: PULSE 86; RESP 21; O2SAT 100
[2024-09-17 23:36] LABS: BEDSIDEPREGUCG Negative (Negative)
[2024-09-17 23:38] LABS: Add Urine Microscopic? YES; Appearance Urine Clear (Clear); Bilirubin Urine Negative (Negative); Blood Urine Negative (Negative); Color Urine Dark Yellow (Yellow); Glucose Urine UA Negative (Negative); Ketones Urine Negative (Negative); Leukocyte Esterase Ur Negative LEU/UL (Negative); Nitrate Urine Negative (Negative); Protein Urine Negative (Negative); Specific Grav Ur 1.019 (1.001-1.035); Urobilinogen Urine 0.2 mg/dL (<2.0); pH Urine 7.5 (5.0-9.0)
[2024-09-17 23:38] LABS: NT Pro B Type Natriuretic Pept 27 pg/mL (19.9-100); Troponin I < 0.012 ng/mL (0.000-0.034)
[2024-09-17 23:41] LABS: Erythrocyte Sedimentation Rate 31 mm/hr (0-20)
[2024-09-17 23:45] VITALS: PULSE 84; RESP 20; O2SAT 100
--- NOTE | 2024-09-17 23:46 | ED_ITS ---
HPI - General Adult General Chief complaint: Unspecified Stated complaint: ankle pain, body pain Time Seen by Provider: 09/17/24 22:37 History of Present Illness HPI narrative: Patient 44-year-old female who presents emergency department chief complaint of generalized body aches. Patient reports the last 2-3 days she has been having soreness in her joints throughout her entire body the patient states she had a little bit of a cough and sore throat patient states that she has been doing a lot more activity as she has been preparing for moving to [place] the patient states that she was concerned and decided to come to the emergency department today because she has noticed that she is very stiff in all of her joints patient denies fever denies nuchal rigidity denies change of mental status denies abdominal pain vomiting or diarrhea Related Data Home Medications ?Medication ?Instructions ?Recorded ?Confirmed ?Last Taken ?Type magnesium 200 mg tablet 200 mg PO DAILY 04/28/24 04/28/24 Unknown History Allergies Allergy/AdvReac Type Severity Reaction Status Date / Time latex Allergy Rash Verified 09/17/24 19:42 shellfish derived Allergy Rash Verified 09/17/24 19:42 Review of Systems 2 Review of Systems: A 10 system review of systems was completed on the patient and is negative except for what is stated in the HPI. Nursing and ancillary documentation was reviewed. PMFSH Past Medical History Medical History Migraine Allergies Surgical History Surgical History Hx of section 2015,2019, &2020 History of appendectomy 08/24/2007 Family History Family History Mother Diabetes mellitus Breast cancer in female Hypertension Father Kidney failure Heart disease Hypertension Diabetes mellitus Sibling Hypertension High cholesterol Social History Social History Smoking status: Never smoker Tobacco type: cigarettes Second hand tobacco smoke exposure: No Alcohol intake: current Drinks per week: 1 Substance use: never Substance use type: does not use Lack of Transportation: No Lack of Food: Never True Current Housing: I Have Housing Concerned About Future Housing: No Difficulty Paying Gas/Electric Bills: No Difficulty Paying for Meds: No Currently Unemployed: No Education: Master's Degree or Higher Difficulty w/ Childcare or Family Care: No Living arrangements: with family Occupation/Education: unemployed Gender identity (if verbalized by the patient): Female Sexual Orientation (if Verbalized by the Patient): Straight or Heterosexual Spiritual care concerns: No Agree to blood products: Yes Exam 2 Narrative: GENERAL: Well-appearing, well-nourished, and in no acute distress. HEAD: Normocephalic, atraumatic. EYES: PERRLA and EOMI. ENT: Nares clear, no rhinorrhea or epistaxis. Mucous membranes moist. NECK: Supple. CHEST: Clear to auscultation. No respiratory distress. HEART: Regular rate and rhythm. No murmur heard. Normal peripheral pulses. ABDOMEN: Soft, nontender, nondistended, normal active bowel sounds. EXTREMITIES: Normal range of motion. No edema. SKIN: Warm, dry, no rash. NEURO: No focal deficits. Alert and oriented x3. PSYCH: Normal mood and affect. Course Vital Signs Vital signs: Vital Signs Temperature 36.8 C 09/17/24 19:40 Pulse Rate 92 09/17/24 19:40 Respiratory Rate 20 09/17/24 19:40 Blood Pressure 105/67 09/17/24 19:40 Pulse Oximetry 100 09/17/24 19:40 Oxygen Delivery Room Air 09/17/24 19:40 Temperature 36.8 C 09/17/24 19:40 Pulse Rate 86 09/18/24 00:01 Respiratory Rate 19 09/18/24 00:01 Blood Pressure 97/76 L 09/17/24 23:13 Pulse Oximetry 100 09/18/24 00:01 Oxygen Delivery Room Air 09/17/24 19:40 Medical Decision Making [facility] Narrative Medical decision making narrative: Differential diagnosis includes myalgias, rhabdomyolysis, dehydration, rheumatological disease, UTI, Laboratory studies were obtained on the patient showed a normal CBC CMP showed a potassium of 3.3 creatinine was 1.19 Troponin was negative CRP was negative sed rate was slightly elevated at 31 Patient is feeling better after receiving p.o. potassium EKG showed no acute ischemic changes Chest x-ray showed no focal findings. Vital Signs Vital Signs: Vital Signs Temperature 36.8 C 09/17/24 19:40 Pulse Rate 92 09/17/24 19:40 Respiratory Rate 20 09/17/24 19:40 Blood Pressure 105/67 09/17/24 19:40 Pulse Oximetry 100 09/17/24 19:40 Oxygen Delivery Room Air 09/17/24 19:40 Temperature 36.8 C 09/17/24 19:40 Pulse Rate 86 09/18/24 00:01 Respiratory Rate 09/18/24 00:01 Blood Pressure 97/76 L 09/17/24 23:13 Pulse Oximetry 100 09/18/24 00:01 Oxygen Delivery Room Air 09/17/24 19:40 Lab Data 09/17/24 23:03 09/17/24 23:03 Labs: Lab Results 09/17/24 09/17/24 09/17/24 Range/Units 23:03 23:33 23:35 WBC 5.6 (4.5-10.0) K/mm3 RBC 4.18 L (4.2-5.4) M/mm3 Hgb 12.3 (12.0-15.0) g/dL Hct 35.1 L (37.0-47.0) % MCV 84.0 (80-100) fl MCH 29.4 (26-34) pg MCHC 35.0 (32-36) g/dl RDW 11.9 (11.5-14.5) % Plt Count 285 (150-375) k/mm3 MPV 8.4 (7.4-10.4) fl Immature Gran % (Auto) 0.7 H (0-0.5) % Neut % (Auto) 62.1 (45.5-73.1) % Lymph % (Auto) 24.0 (18.3-44.2) % [place] % (Auto) 9.1 H (2.6-8.5) % Eos % (Auto) 3.4 (0-4.4) % Baso % (Auto) 0.7 (0.2-1.2) % Lymph # (Auto) 1.35 (0.9-3.2) K/mm3 [place] # (Auto) 0.5 (0.1-0.6) K/mm3 Eos # (Auto) 0.2 (0-0.3) K/mm3 Baso # (Auto) 0.0 (0.0-0.1) K/mm3 Abs Immat Gran (auto) 0.04 H (0.00-0.031) K/mm3 Absolute Neuts (auto) 3.5 (1.3-6.7) K/mm3 Absolute Nucleated RBC 0.000 (0.0-0.012) K/mm3 Band Neutrophils % 0 (0-6) % Nucleated RBC % 0.0 (0.0-0.2) % Atypical Lymphocytes Present Smudge Cells Present Platelet Estimate Adequate (Adequate) Hypochromasia 1+ Anisocytosis 1+ Schistocytes None seen ESR 31 H (0-20) mm/hr Sodium 137 (137-145) mmol/L Potassium 3.3 L (3.4-5.0) mmol/L Chloride 107 (98-107) mmol/L Carbon Dioxide 20 L (22-30) mmol/L Anion Gap 10 (4-12) mmol/L BUN 19 H (7-17) mg/dL Creatinine 1.19 H (0.7-1.0) mg/dL Estim Creat Clear Calc 44 ml/min Estimated GFR 49 L (59 - ) Glucose 101 (65-110) mg/dL Lactic Acid 0.8 (0.7-2.0) mmol/L Calcium 8.7 (8.4-10.2) mg/dL Magnesium 2.2 (1.6-2.3) mg/dL Total Bilirubin 0.3 (0.2-1.3) mg/dL AST 22 (14-36) U/L ALT 14 (6-35) U/L Alkaline Phosphatase 37 L (38-126) U/L Total Creatine Kinase 59 (30-135) U/L Troponin I < 0.012 (0.000-0.034) ng/mL C-Reactive Protein 0.9 (<1.0) mg/dL NT-Pro-B Natriuret Pep 27 (19.9-100) pg/mL Total Protein 7.4 (6.3-8.2) g/dL Albumin 3.7 (3.5-5.1) g/dL TSH (Reflex) 4.150 (0.465-4.68) uIU/mL Free T4 Pending Urine Color Dark yellow (Yellow) Urine Appearance Clear (Clear) Urine pH 7.5 (5.0-9.0) Ur Specific [place] 1.019 (1.001-1.035) Urine Protein Negative (Negative) mg/dL Urine Glucose (UA) Negative (Negative) mg/dL Urine Ketones Negative (Negative) mg/dL Ur Blood (Man) Negative (Negative) Urine Nitrate Negative (Negative) Urine Bilirubin Negative (Negative) Urine Urobilinogen 0.2 (<2.0) mg/dL Leukocyte Esterase Rfl Negative (Negative) BRANDI/UL POC Urine HCG, Qual Negative (Negative) Influenza A (RT-PCR) Negative (Negative) Influenza B (RT-PCR) Negative (Negative) RSV (RT-PCR) Negative (Negative) SARS-CoV-2 RNA (RT-PCR) Negative (Negative) Discharge Plan Discharge Clinical Impression: Myalgia Patient Disposition: Home Condition: Stable Instructions: Antibiotic Form, Musculoskeletal Pain (ED) Additional Instructions: Please follow-up primary care. Is recommended he stay well hydrated you may take the anti-inflammatory for the body aches. If you develop high fever shortness of breath chest pain developed signs of infection please return to the emergency department for re-evaluation. Patient Language: [place] Prescriptions: New diclofenac potassium 50 mg tablet 50 mg PO TID PRN (Reason: pain) Qty: 30 0RF No Action magnesium 200 mg tablet 200 mg PO DAILY potassium chloride 10 mEq capsule, extended release 10 meq PO .TWICE WEEKLY Qty: 90 1RF topiramate [Topamax] 25 mg tablet 50 mg PO DAILY Qty: 180 3RF lisinopril 20 mg tablet 20 mg PO DAILY Qty: 90 1RF hydrochlorothiazide 25 mg tablet 25 mg PO DAILY Qty: 90 1RF labetalol 100 mg tablet 100 mg PO DAILY Qty: 90 1RF omeprazole 40 mg capsule,delayed release(DR/EC) See Rx Instructions .ROUTE .COMPLEX Qty: 180 1RF Dose Instruction: TAKE 1 CAPSULE BY MOUTH TWICE A DAY Rx Instructions: TAKE 1 CAPSULE BY MOUTH TWICE A DAY Follow-up/Referrals: Jes Yousif MD [Primary Care Provider] - Time of Disposition: 00:23
[2024-09-17 23:51] LABS: Influenza A QL RT-PCR Negative (Negative); Influenza B QL RT-PCR Negative (Negative); RSV RNA, RT-PCR Negative (Negative); SARS-CoV-2 RNA PCR Negative (Negative)
[2024-09-18 00:01] VITALS: PULSE 86; RESP 19; O2SAT 100
[2024-09-18] MEDS: POTASSIUM CHLORIDE 20 MEQ PACKET (FOR LIQUID) 40 MEQ PO (00:01)
[2024-09-18 02:45] LABS: Total Triiodothyronine (T3) 1.04 NG/ML (0.82-1.58)
== END 2024-09-18 00:30 | disposition home or self-care (01) ==
PROVIDERS: Emergency Provider Emergency Medicine; PCP Family Medicine
DX: M79.10 Myalgia, unspecified site (principal); Z20.822 Contact with and (suspected) exposure to COVID-19
CPT/HCPCS: 36415; 71045; 80053; 81001; 81025; 82550; 83605; 83735; 83880; 84439; 84443; 84480; 84484; 85025; 85652; 86140; 87637; 93005; 99284; A9270